=== PATIENT | female | born 1940 | race Caucasian/White ===

== ENCOUNTER 2017-07-31 16:59 | Inpatient (IN) | payer MEDICARE, MEDICAID ==
[2017-07-31] VITALS (11 sets, daily range): BP systolic 101–145; BP diastolic 58–91
[~2017-07-31] VITALS: Ht 172.7 cm; Wt 99.8 kg
[~2017-07-31 16:59] MED LIST: ACHD5005 PO; AMLO1CAP PO; AMLO1CAP31; AMLO1CAP5 PO; AMLO1CAP8 PO; ASPI1TAB PO; CALC-665 PO; CHLO-159 PO; CIPR500T4 PO; CRAN1CAP5 PO; EZET10TA5; HCT25T PO; HYDR25TA4 PO; INSASP10V; INSASP10V SQ; INSHRV; INSU100V16 SQ; INSU100V5 SQ; INSU100V6 SQ; INSU100V8 SQ; KETO10TA77 PO; LEVO500T69 PO; MECL-124 PO; MULT-1021 PO; NAPR220T76 PO; NITR-65 PO; PRAV40TA PO; PRAV40TA2 PO; SCOP1PAT TD; SIMV40TA2; SIMV5TAB6; SMV20T
[2017-07-31] MEDS ORDERED: ASPIRIN 81 MG CHEW (CHILDREN'S ASA) PO ONE (17:00)
[2017-07-31 17:08] LABS: BASOPHILS % (AUTO) 0 % (0-10); EOSINOPHILS % (AUTO) 0 % (0-10); HEMATOCRIT 35 % (35-52); HEMOGLOBIN 11.4 G/DL (11.5-16.0); LYMPHOCYTES # (AUTO) 1.7 X 10^3 (1.0-4.0); LYMPHOCYTES % (AUTO) 10 % (12-44); MEAN CORPUSCULAR HEMOGLOBIN 30 PG (25-34); MEAN CORPUSCULAR HGB CONC 32 G/DL (32-36); MEAN CORPUSCULAR VOLUME 91 FL (80-99); MEAN PLATELET VOLUME 11.5 FL (7.4-10.4); MONOCYTES # (AUTO) 0.2 X 10^3 (0.0-1.0); MONOCYTES % (AUTO) 1 % (0-12); NEUTROPHILS # (AUTO) 15.1 X 10^3 (1.8-7.8); NEUTROPHILS % (AUTO) 89 % (42-75); PLATELET COUNT 321 10^3/uL (130-400); RED BLOOD COUNT 3.87 10^6/uL (4.35-5.85); RED CELL DISTRIBUTION WIDTH 14.9 % (10.0-14.5)
[2017-07-31] MEDS ORDERED: RT-ALBUTEROL/IPRATROPIUM 3 ML (DUONEB) VIAL ONE ×2 (17:11→20:54)
[2017-07-31] MEDS ORDERED: RT-ALBUTEROL SULF 2.5 MG/3 ML PRE-MIX VIAL INH STA ×2 (17:11→17:26)
--- NOTE | 2017-07-31 17:11 | ED Chest Pain ---
General Stated Complaint: CP Source: patient, EMS, retirement records, old records Exam Limitations: clinical condition History of Present Illness Date Seen by Provider: Jul 31, 2017 Time Seen by Provider: 16:53 Initial Comments Patient presents to the ER by EMS with a chief complaint that she is having chest pain for the past 2 days. She says the pain is 10 out of 10. EMS on route brought her put an IV in her arm and gave her 50 mg fentanyl which the patient says was starting to help. She is also complaining of shortness of breath and was 82% on 2 L by nasal cannula when they arrived. They said the patient was mouth breathing so they switched her over to a nonrebreather and got her sats up into the 96 range. The patient says this pain is not the same pain she was experiencing when she had her heart attack a couple months ago. She says that the pain has progressively gotten worse and that's why she asked for an ambulance today. She comes from via [facility]. She's having some sweats but no nausea or vomiting. Allergies and Home Medications Allergies Coded Allergies: Zulema Known Allergies (Unverified Allergy, Unknown, 08/29/05) Home Medications Amlodipine Besylate/Benazepril 1 Each Capsule, 1 CAP PO DAILY, (Reported) Hydrochlorothiazide 25 Mg Tablet, 25 MG PO HS, (Reported) Insulin Aspart 100 Unit/1 Ml Susp, 20 UNITS SQ TIDWM, (Reported) Insulin Determir 1,000 Units/10 Ml Soln, 55 UNITS SQ HS, (Reported) Pravastatin Sodium 40 Mg Tablet, 40 MG PO HS, (Reported) Patient Home Medication List Home Medication List Reviewed: Yes Review of Systems Constitutional: chills, diaphoresis, malaise EENTM: No Blurred Vision, No Double Vision Respiratory: Denies Cough; Shortness of Air, SOA With Exertion, Wheezing Cardiovascular: See HPI, Chest Pain; Denies Palpitations, Denies Syncope Gastrointestinal: Denies Constipated, Denies Diarrhea Genitourinary: Denies Burning, Denies Discharge Musculoskeletal: No back pain, No joint pain Skin: No pruritus, No rash Psychiatric/Neurological: Denies Headache, Denies Numbness, Denies Paresthesia Past Abcxugz-Yjhiph-Pleeqy Hx Patient Social History Alcohol Use: Denies Use Recreational Drug Use: No Smoking Status: Never a Smoker Recent Hopitalizations: No Seasonal Allergies Seasonal Allergies: Yes (take ChlorTabs) Past Medical History Surgeries: Yes (MELANOMA REMOVAL FROM RIGHT LEG; BILATERAL CATARACTS) Eye Surgery, Gallbladder Respiratory: No Cardiac: Yes Chronic Edema/Swelling, High Cholesterol, Hypertension Neurological: No Reproductive Disorders: No Female Reproductive Disorders: Denies COMMERCIAL REAL ESTATE APPRAISER History: Menopausal Sexually Transmitted Disease: No HIV/AIDS: No Genitourinary: Yes (RENAL INSUFFICIENCY; UROSEPSIS) UTI-Chronic Gastrointestinal: Yes Gall Bladder Disease Musculoskeletal: Yes (RIGHT ANKLE FRACTURE--NO SURGERY) Arthritis, Fractures Endocrine: Yes Diabetes, Insulin dep HEENT: Yes Cataract, Macular Degeneration Hearing Impairment: Denies Cancer: Yes Melanoma Did You Recieve Any Treatments: Yes What Type of Treatment Did You: Surgical Intervention Psychosocial: No Integumentary: No Blood Disorders: Yes (ANEMIA) Family Medical History No Pertinent Family Hx Physical Exam Vital Signs Vital Signs - First Documented 07/31/17 17:00 Temp 95.3 Pulse 104 Resp 18 B/P (MAP) 156/96 (116) Pulse Ox 94 O2 Delivery OxyMask O2 Flow Rate 10.00 Capillary Refill : General Appearance: Anxious, Moderate Distress HEENT: PERRL/EOMI, TMs Normal, Normal ENT Inspection, Pharynx Normal Neck: Normal Inspection, Supple Respiratory: Accessory Muscle Use (mild), Decreased Breath Sounds, Expiration, Wheezing Cardiovascular: Regular Rate, Rhythm, No Murmur, Normal Peripheral Pulses Gastrointestinal: Normal Bowel Sounds, Non Tender, Soft Extremity: Normal Capillary Refill, Normal Inspection Neurologic/Psychiatric: Alert, Oriented x3 Skin: Normal Color, Warm/Dry, Damp, Diaphoresis Progress/Results/Core Measures Results/Orders Lab Results Laboratory Tests Test 07/31/17 17:01 07/31/17 17:15 Range/Units White Blood Count 17.0 H 4.3-11.0 10^3/uL Red Blood Count 3.87 L 4.35-5.85 10^6/uL Hemoglobin 11.4 L 11.5-16.0 G/DL Hematocrit 35 35-52 % Mean Corpuscular Volume 91 80-99 FL Mean Corpuscular Hemoglobin 30 25-34 PG Mean Corpuscular Hemoglobin Concent 32 32-36 G/DL Red Cell Distribution Width 14.9 H 10.0-14.5 % Platelet Count 321 130-400 10^3/uL Mean Platelet Volume 11.5 H 7.4-10.4 FL Neutrophils (%) (Auto) 89 H 42-75 % Lymphocytes (%) (Auto) 10 L 12-44 % Monocytes (%) (Auto) 1 0-12 % Eosinophils (%) (Auto) 0 0-10 % Basophils (%) (Auto) 0 0-10 % Neutrophils # (Auto) 15.1 H 1.8-7.8 X 10^3 Lymphocytes # (Auto) 1.7 1.0-4.0 X 10^3 Monocytes # (Auto) 0.2 0.0-1.0 X 10^3 Eosinophils # (Auto) 0.0 0.0-0.3 10^3/uL Basophils # (Auto) 0.0 0.0-0.1 10^3/uL Neutrophils % (Manual) 90 % Lymphocytes % (Manual) 7 % Monocytes % (Manual) 3 % Blood Morphology Comment NORMAL Prothrombin Time 14.5 12.2-14.7 SEC INR Comment 1.1 0.8-1.4 Activated Partial Thromboplast Time 27 24-35 SEC D-Dimer 1.24 H 0.00-0.49 UG/ML Sodium Level 140 135-145 MMOL/L Potassium Level 5.0 3.6-5.0 MMOL/L Chloride Level 105 98-107 MMOL/L Carbon Dioxide Level 23 21-32 MMOL/L Anion Gap 12 5-14 MMOL/L Blood Urea Nitrogen 47 H 7-18 MG/DL Creatinine 1.36 H 0.60-1.30 MG/DL Estimat Glomerular Filtration Rate 38 BUN/Creatinine Ratio 35 Glucose Level 300 H 70-105 MG/DL Calcium Level 10.0 8.5-10.1 MG/DL Magnesium Level 2.4 1.8-2.4 MG/DL Total Bilirubin 0.4 0.1-1.0 MG/DL Aspartate Amino Transf (AST/SGOT) 48 H 5-34 U/L Alanine Aminotransferase (ALT/SGPT) 67 H 0-55 U/L Alkaline Phosphatase 146 H 40-136 U/L Myoglobin 86.6 10.0-92.0 NG/ML Troponin I < 0.30 <0.30 NG/ML B-Type Natriuretic Peptide 1048.3 H <100.0 PG/ML Total Protein 7.7 6.4-8.2 GM/DL Albumin 4.0 3.2-4.5 GM/DL Lipase 14 8-78 U/L Blood Gas Puncture Site LT RAD Blood Gas Patient Temperature 95.3 Arterial Blood pH 7.23 *L 7.37-7.43 Arterial Blood Partial Pressure CO2 70 H 35-45 MMHG Arterial Blood Partial Pressure O2 77 L 79-93 MMHG Arterial Blood HCO3 29 H 23-27 MMOL/L Arterial Blood Total CO2 31.2 H 21.0-31.0 MMOL/L Arterial Blood Oxygen Saturation 92 L 94-100 % Arterial Blood Base Excess 1.5 -2.5-2.5 MMOL/L Nicho Test YES-POS Blood Gas Ventilator Setting NO Blood Gas Inspired Oxygen 10L My Orders Orders - LATOYA,ANA J Cbc With Automated Diff (07/31/17 17:00) Magnesium (07/31/17 17:00) Chest 1 View, Ap/Pa Only (07/31/17 17:00) Ekg Tracing (07/31/17 17:00) Cardiac Profile 1 (07/31/17 17:00) Comprehensive Metabolic Panel (07/31/17 17:00) Myoglobin Serum (07/31/17 17:00) Protime With Inr (07/31/17 17:00) Partial Thromboplastin Time (07/31/17 17:00) O2 (07/31/17 17:00) Monitor-Rhythm Ecg Trace Only (07/31/17 17:00) Saline Lock/Iv-Start (07/31/17 17:00) Lipase (07/31/17 17:00) BNP (07/31/17 17:00) Fibrin Degradation Products (07/31/17 17:00) Aspirin Chewable Tablet (Baby Aspirin Ch (07/31/17 17:00) Nitroglycerin 0.4 Mg Btl 25's (Nitrostat (07/31/17 17:00) Lipid Panel (08/01/17 06:00) Manual Differential (07/31/17 17:01) Albuterol Pre-Mix Nebs (Rt) (Proventil (07/31/17 17:11) Albuterol/Ipra Inhalation Soln (Duoneb I (07/31/17 17:15) Svn Small Volume Nebulizer (07/31/17 17:11) Albuterol/Ipra Inhalation Soln (Duoneb I (07/31/17 17:11) Arterial Blood Gas (07/31/17 17:16) Morphine Injection (Morphine Injection (07/31/17 17:30) Morphine Injection (Morphine Injection (07/31/17 17:22) Albuterol Pre-Mix Nebs (Rt) (Proventil (07/31/17 17:26) Saline Lock/Iv-Start (07/31/17 17:27) Ns Iv 1000 Ml (Sodium Chloride 0.9%) (07/31/17 17:27) Ct Angio Chest W (07/31/17 17:36) Bipap (Bilevel) Set Up (07/31/17 17:46) Iohexol Injection (Omnipaque 350 Mg/Ml 1 (07/31/17 18:00) Ns (Ivpb) (Sodium Chloride 0.9% Ivpb Bag (07/31/17 18:00) Furosemide Injection (Lasix Injection) (07/31/17 19:00) Medications Given in ED Current Medications Medications Dose Ordered Sig/Rommel Route Start Time Stop Time Status Last Admin Dose Admin Albuterol/ Ipratropium 3 ml ONCE ONCE INH 07/31/17 17:15 07/31/17 17:16 DC 07/31/17 17:43 3 ML Aspirin 162 mg ONCE ONCE PO 07/31/17 17:00 07/31/17 17:02 DC 07/31/17 17:15 162 MG Iohexol 150 ml ONCE ONCE IV 07/31/17 18:00 07/31/17 18:01 UNV 07/31/17 18:08 125 ML Morphine Sulfate 4 mg ONCE ONCE IVP 07/31/17 17:30 07/31/17 17:31 DC 07/31/17 17:25 4 MG Nitroglycerin 0.4 mg UD PRN SL 07/31/17 17:00 07/31/17 17:17 0.4 MG Sodium Chloride 100 ml ONCE ONCE IV 07/31/17 18:00 07/31/17 18:01 UNV 07/31/17 18:08 100 ML Vital Signs/I&O 07/31/1718 07/31/17 17:00 17:00 17:44 Temp 95.3 Pulse 104 98 Resp 18 29 B/P (MAP) 156/96 (116) Pulse Ox 94 93 97 O2 Delivery OxyMask O2 Flow Rate 10.00 Progress Progress Note #1: Time: 17:23 Progress Note Patient describes her chest pain as being different from when she had her cardiac disease however her cardiac catheterization from April 2017 demonstrates that she was sent to [place], [place] for potential CABG but they put stents and instead. The patient is on Pradaxa per retirement records. She says the pain was marginally improved with 2 nitroglycerin down to 8 out of 10 but she still having quite a bit of pain and anxiety sober any give her 4 mg of morphine in addition. Her blood pressure still good 140. The patient's breath sounds are still very tight but moving a little bit more air after the initial albuterol DuoNeb. We are going to give her an hour-long nebulizer but she's not able to tolerate the 6 L/m nebulizer alone so we'll put her on CPAP to help with her increased work of breathing. Progress Note #2: Time: 18:35 Progress Note With the patient's chest pain, shortness of breath, hypoxia is very concerning for pneumonia, heart failure, pulmonary embolism, coronary artery disease. She says the pain is not the same as her last heart attack so the other seemed to be more likely. Her EKG is unremarkable. Her d-dimer was elevated so despite her having chronic kidney disease we have ordered a CT angiogram and will chaser with a liter fluids. Her BNP came back elevated over thousand and her chest x-ray looks like fluid overload so we will now jose her with some Lasix. Initial ECG Impression Date: Jul 31, 2017 Initial ECG Impression Time: 17:03 Initial ECG Rate: 109 Initial ECG Rhythm: S.Tach Initial ECG Intervals: Normal Initial ECG Impression: Normal, Nonspecific Changes Initial ECG Comparisson: Changed Comment The T-wave elevation in the anterior leads is no longer seen from April 2017. There is no ST segment elevation or depression currently. She does have low voltage read with some minor artifact. Diagnostic Imaging Diagonstic Imaging: Xray Plain Films/CT/US/NM/MRI: chest Comments VIA [facility], [facility]. [place], [place] NAME: LALO CULLEN I [facility] REC#: [id number] PT STATUS: REG ER : 1940 PHYSICIAN: ANA KLEIN MD ADMIT DATE: 07/31/17/ER Draft Date of Exam:07/31/17 CHEST 1 VIEW, AP/PA ONLY INDICATION: Chest pain. Shortness of breath. COMPARISON: 04/22/2017. FINDINGS: There has been increase in cardiac size. There has been development of pulmonary edema with bilateral perihilar infiltrates as well as bilateral lower lobe alveolar infiltrates. There are small bilateral pleural effusions. IMPRESSION: 1. Findings are consistent with development of congestive failure since previous exam. Cannot exclude superimposed pneumonia in the lower lobes bilaterally. Dictated on workstation # [id number] Dict: 07/31/17 1816 Trans: 07/31/17 1824 KB [id number] Interpreted by: MADI JUAREZ MD Electronically signed by: Reviewed: Reviewed by Me Diagonstic Imaging: CT (angio) Plain Films/CT/US/NM/MRI: chest Comments VIA [place], [place] NAME: LALO CULLEN I [facility] REC#: [id number] PT STATUS: REG ER : 1940 PHYSICIAN: ANA KLEIN MD ADMIT DATE: 07/31/17/ER Draft Date of Exam:07/31/17 CT ANGIO CHEST W PROCEDURE: CT angiography of the chest with contrast. TECHNIQUE: Multiple contiguous axial images were obtained through the chest after uneventful bolus administration of intravenous contrast. Reconstructed CTA MIP acquisitions were also performed. INDICATION: Chest pain with shortness of breath. History of previous DVT and PE. CT angiography was performed due to acute shortness of breath and high risk and in spite of mildly decreased GFR function. This was discussed with the physician. FINDINGS: There are large bilateral pleural effusions. There is bilateral lower lobe atelectasis. Findings are consistent with diffuse pulmonary edema with diffuse interstitial infiltrate. There is good opacification of aorta and pulmonary arteries. There is no evidence of aortic aneurysm or dissection. Pulmonary arteries are well opacified. There are no filling defects to indicate pulmonary emboli. There is cardiomegaly with dilated left ventricle. No mediastinal or hilar adenopathy of pathologic size. IMPRESSION: 1. Findings are consistent with congestive failure with large bilateral pleural effusions with bibasilar atelectasis and diffuse interstitial infiltrates as well as cardiomegaly. 2. No findings to suggest pulmonary emboli. Dictated on workstation # [id number] Dict: 07/31/17 1821 Trans: 07/31/17 1829 KB [id number] Interpreted by: MADI JUAREZ MD Electronically signed by: Reviewed: Reviewed by Me Departure Communication (Admissions) Time/Spoke to Admitting Phy: 18:43 Dr Tom; discussed case lab imaging findings and use a CT angiogram despite chronic kidney disease. Discussed possibility of pneumonia that will cover her with cefepime. She agrees with ICU placement and she'll see the patient in the morning. Impression Primary Impression: Acute respiratory distress Additional Impressions: Hypoxemia Hypercarbia Acute decompensated heart failure Pneumonia Qualified Codes: J18.9 - Pneumonia, unspecified organism Sepsis Qualified Codes: A41.9 - Sepsis, unspecified organism Disposition: ADMITTED INPATIENT Condition: Critical Admissions Decision to Admit Reason: Admit from ER (General) Decision to Admit/Date: Jul 31, 2017 Time/Decision to Admit Time: 18:39 Departure-Patient Inst. Referrals: MERLIN OLMOS MD (PCP/Family) Primary Care Physician Copy Copies To 1: KHLOE JAIN TITUS J Jul 31, 2017 17:11
[2017-07-31] MEDS: NITROGLYCERIN 0.4 MG SL TABS BTL 25'S SL PRN ×2 (17:12→17:17)
[2017-07-31] MEDS ORDERED: RT-ALBUTEROL/IPRATROPIUM 3 ML (DUONEB) VIAL INH ONE (17:15)
[2017-07-31 17:20] LABS: INR 1.1 (0.8-1.4); PROTHROMBIN TIME PATIENT 14.5 SEC (12.2-14.7)
[2017-07-31] MEDS ORDERED: morphine INJ 10 MG/ML 1ML (SYR OR VIAL) ONE (17:22)
[2017-07-31 17:24] LABS: ABG BASE EXCESS 1.5 MMOL/L (-2.5-2.5); ABG OXYGEN SATURATION 92 % (94-100); ABG PCO2 70 MMHG (35-45); ABG PO2 77 MMHG (79-93); ABG TCO2 31.2 MMOL/L (21.0-31.0)
[2017-07-31 17:25] LABS: ABG PH 7.23 (7.37-7.43)
[2017-07-31 17:26] LABS: ALLENS TEST YES-POS; INSPIRED O2 10L; PATIENT TEMP 95.3; VENTILATOR NO
[2017-07-31 17:27] LABS: ALANINE AMINOTRANSFERASE 67 U/L (0-55); ALKALINE PHOSPHATASE 146 U/L (40-136); BILIRUBIN,TOTAL 0.4 MG/DL (0.1-1.0); BUN/CREATININE RATIO 35; CARBON DIOXIDE 23 MMOL/L (21-32); CHLORIDE 105 MMOL/L (98-107); CREATININE SERUM 1.36 MG/DL (0.60-1.30); GFR ESTIMATED 38; GLUCOSE 300 MG/DL (70-105); LIPASE 14 U/L (8-78); MAGNESIUM 2.4 MG/DL (1.8-2.4); SODIUM 140 MMOL/L (135-145); TOTAL PROTEIN 7.7 GM/DL (6.4-8.2)
[2017-07-31] MEDS ORDERED: NS IV 1000 ML 1,000 ML IV SCH (17:27)
[2017-07-31] MEDS ORDERED: morphine INJ 10 MG/ML 1ML (SYR OR VIAL) IVP ONE (17:30)
[2017-07-31 17:33] LABS: MYOGLOBIN SERUM 86.6 NG/ML (10.0-92.0)
[2017-07-31 17:41] LABS: LYMPHOCYTES % (MANUAL) 7 %; MONOCYTES % (MANUAL) 3 %; NEUTROPHILS % (MANUAL) 90 %; RBC MORPH NORMAL
[2017-07-31] MEDS ORDERED: IOHEXOL 350 MG/ML 150 ML (OMNIPAQUE 350) VIAL IV ONE (18:00)
[2017-07-31] MEDS ORDERED: NS 100 ML (IVPB) BAG IV ONE (18:00)
--- NOTE | 2017-07-31 18:24 | Diagnostic Imaging Report ---
INDICATION: Chest pain. Shortness of breath. COMPARISON: 04/22/2017. FINDINGS: There has been increase in cardiac size. There has been development of pulmonary edema with bilateral perihilar infiltrates as well as bilateral lower lobe alveolar infiltrates. There are small bilateral pleural effusions. IMPRESSION: 1. Findings are consistent with development of congestive failure since previous exam. Cannot exclude superimposed pneumonia in the lower lobes bilaterally. Dictated by: Dictated on workstation # [id number]
--- NOTE | 2017-07-31 18:29 | Diagnostic Imaging Report ---
PROCEDURE: CT angiography of the chest with contrast. TECHNIQUE: Multiple contiguous axial images were obtained through the chest after uneventful bolus administration of intravenous contrast. Reconstructed CTA MIP acquisitions were also performed. INDICATION: Chest pain with shortness of breath. History of previous DVT and PE. CT angiography was performed due to acute shortness of breath and high risk and in spite of mildly decreased GFR function. This was discussed with the physician. FINDINGS: There are large bilateral pleural effusions. There is bilateral lower lobe atelectasis. Findings are consistent with diffuse pulmonary edema with diffuse interstitial infiltrate. There is good opacification of aorta and pulmonary arteries. There is no evidence of aortic aneurysm or dissection. Pulmonary arteries are well opacified. There are no filling defects to indicate pulmonary emboli. There is cardiomegaly with dilated left ventricle. No mediastinal or hilar adenopathy of pathologic size. IMPRESSION: 1. Findings are consistent with congestive failure with large bilateral pleural effusions with bibasilar atelectasis and diffuse interstitial infiltrates as well as cardiomegaly. 2. No findings to suggest pulmonary emboli. Dictated by: Dictated on workstation # [id number]
[2017-07-31] MEDS ORDERED: FUROSEMIDE 40 MG/4 ML INJ (LASIX) IVP ONE (19:00)
--- OUTSIDE RECORDS SUMMARY | 2017-07-31 19:46 | XMS REPORT ---
Author Author MERLIN OLMOS Organization [facility] Address [address] [place] [address] Care Team Providers Care Fish Roe Technician Name Role Phone MERLIN OLMOS Unavailable PROBLEMS Type Condition ICD9-CM Code [id number] Code Onset Dates Condition Status SNOMED Code Problem Type 2 diabetes mellitus without complications E11.9 Active 459103253 Problem Chronic kidney disease, unspecified N18.9 Active 070192631 Problem Coronary artery disease involving 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 Active [id number] Problem Mixed hyperlipidemia E78.2 Active 011529559 Problem Arthropathy, unspecified M12.9 Active 666818836 Problem Hyperlipidemia, unspecified hyperlipidemia type E78.5 Active 18292383 Problem Essential hypertension I10 Active [id number] ALLERGIES No Information ENCOUNTERS Encounter Location Date Diagnosis [place] [id number] [place] [address] 24210- 7761 May, [place] [id number] [place] [address] 51537- 1428 May, [facility] [address] [place] [id number] May, Rib pain on left side R07.81 and Type 2 diabetes mellitus without complications E11.9 [facility] [address] [place] [id number] Apr, Coronary artery disease involving 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 ; Type 2 diabetes mellitus without complications E11.9 ; Chronic kidney disease, unspecified N18.9 ; Essential hypertension I10 and Hyperlipidemia, unspecified hyperlipidemia type E78.5 [place] [id number] [place] [address] 67049- 7069 Apr, [place] [id number] [place] [address] 72862- 0727 Apr, [facility] [id number] [place] [address] 41587- 4763 Mar, Type 2 diabetes mellitus without complications E11.9 ; Essential hypertension I10 and Arthropathy, unspecified M12.9 [facility] [id number] [place] [address] 85758- 8641 Mar, [facility] [address] [address]472- 1556 Mar, [facility] [id number] [place] [address] 08912- 4189 Dec, Cough R05 and Nasal congestion R09.81 [facility] [id number] [place] [address] 28000 -9004 Nov, Bronchitis J40 and Body aches R52 [facility] [id number] [place] [address] 79727- 0617 Sep, [facility] [id number] [place] [address] 43713- 1240 Sep, [facility] [id number] [place] [address] 98583- 8827 Sep, [facility] [id number] [place] [address] 04270- 1203 Aug, Arthropathy, unspecified M12.9 [facility] [id number] [place] [address] 67102- 5993 Jul, Arthropathy, unspecified M12.9 [facility] [id number] [place] [address] 34126- 0796 June, Type 2 diabetes mellitus without complications E11.9 ; Urinary tract infection without hematuria, site unspecified N39.0 and Arthropathy, unspecified M12.9 [facility] [address] [place] [address] 07507- 4409 May, Vertigo R42 [facility] [id number] [place] [address] 66245- 2763 May, [facility] [address] 95940- 1608 May, Arthropathy, unspecified M12.9 [facility] [id number] [place] [address] 84687- 6433 Apr, Arthropathy, unspecified M12.9 [facility] [address] 54981- 4231 Mar, Arthropathy, unspecified M12.9 [facility] [address] 05501- 8601 Jan, Arthropathy, unspecified M12.9 [facility] [id number] [place] [address] 06933- 8313 Jan, Dysuria R30.0 and Encounter for immunization Z23 [facility] [id number] [place] [address] 41676- 0034 Jan, Arthropathy, unspecified M12.9 [facility] [id number] [place] [address] 43976- 6425 Dec, Arthropathy, unspecified M12.9 and Mixed hyperlipidemia E78.2 [facility] [id number] [place] [address] 18749- 4687 Dec, [facility] [id number] [place] [address] 31197- 7526 Nov, [facility] [id number] [place] [address] 24540- 0077 Oct, [facility] [id number] [place] [address] 41957- 6924 Sep, [facility] [id number] [place] [address] 59625- 9536 Aug, [facility] [id number] [place] [address] 92199- 4517 Aug, Type 2 diabetes mellitus without complications E11.9 [facility] [address] [place] [address] 43088- 5933 Jul, Arthropathy, unspecified M12.9 [facility] [address] [address] 3[address] Jul, [facility] [id number] [place] [address] 20101- 9216 June, Arthropathy, unspecified M12.9 [facility] [address] [place] [address] 94732- 3523 May, Arthropathy, unspecified M12.9 [facility] [address] [place] [address] 26762- 5337 Apr, Arthropathy, unspecified M12.9 [facility] [id number] [place] [address] 18711- 7105 Mar, DM w/o complication type II 250.00 and UTI (urinary tract infection) N39.0 [facility] [address] [place] [address] 18190- 5681 Jan, [facility] [address] [address] 3419 Dec, [facility] [address] [address]- 4953 Nov, [facility] [address] [address]- 9379 Nov, [facility] [address] [place] [address] 47079- 3960 Nov, [facility] [address] [address]- 6210 Nov, Dysuria R30.0 [facility] [address] [place] [address] 29608- 2109 Nov, Dysuria R30.0 [facility] [id number] [address] 1994 Oct, DM w/o complication type II 250.00 ; Arthritis 716.90 ; Herpes zoster 053.9 and Flu vaccine need V04.81 [facility] [address] [address] Sep, [facility] [id number] [place] [address] 07999- 6734 Sep, [facility] [address] [address]- 7294 Aug, [facility] [id number] [place] [address] 61247- 1973 Aug, Chronic kidney disease 585.9 [facility] [address] [place] [address] 96440- 2070 Aug, [facility] [address] [address]- 6196 Jul, [facility] [id number] [place] [address] 29859- 8996 Jul, Urinary tract infection, site not specified 599.[address] [facility] [address] [address]- 6749 Jul, [facility] [address] [place] [address] 92648- 7008 Jul, [facility] [id number] [address]- 5739 Jul, Chronic kidney disease 585.9 [facility] [address] [place] [address] 02261- 6881 Jul, Muscle strain of left upper arm 840.9 [facility] [address] [address]- 7293 June, [facility] [address] [id number] [place] [address]- 3535 June, [facility] [place] [facility] [address] [id number] [place] [address]- 4774 June, [facility] [place] [facility] [address] [id number] [place] [address]- 0328 May, [facility] [place] [facility] [address] [id number] [place] [address]- 3097 May, [facility] [place] [facility] [address] [id number] [place] [address]- 7242 Apr, [facility] [place] [facility] [address] [id number] [place] [address]- 2119 24 Apr, 2014 [facility] [place] [facility] [address] [id number] [place] [address]- 2713 Apr, [facility] [place] [facility] [address] [id number] [place] [address]- 6806 Apr, [facility] [place] [facility] [address] [id number] [place] [address]- 5885 Apr, [facility] [place] [facility] [address] [id number] [place] [address]- 2977 Apr, [facility] [place] [facility] [address] [id number] [place] [address]- 3045 Apr, [facility] [place] [facility] [address] [id number] [place] [address]- 7129 Jan, [facility] [place] [facility] [address] [id number] [place] [address]- 5037 Jan, [facility] [place] [facility] [address] [id number] [place] [address]- 2251 Jan, [facility] [place] [facility] [address] [id number] [place] [address]- 7827 Jan, [facility] [place] [facility] [address] [id number] [place] [address]- 1238 Oct, [facility] [place] [facility] [address] [id number] [place] [address]- 1987 Oct, [facility] [place] [facility] [address] [id number] [place] [address]- 6937 Oct, [facility] [place] [facility] [address] [id number] [place] [address]- 6661 Oct, [facility] [place] [facility] [address] [id number] [place] [address]- 4577 Oct, [facility] [place] [facility] [address] [id number] [place] [address]- 6379 Sep, [facility] [place] [facility] [address] [id number] [place] [address]- 0446 Sep, [facility] [place] [facility] [address] [id number] [place] [address]- 4282 Sep, [facility] [place] [facility] [address] [id number] [place] [address]- 5575 Sep, [facility] [place] [facility] [address] [id number] [place] [address]- 5746 Sep, [facility] [place] [facility] [address] [id number] [place] [address]- 6597 Sep, [facility] [place] [facility] [address] [id number] [place] [address]- 1373 Aug, [facility] [place] [facility] [address] [id number] [place] [address]- 1800 Aug, [facility] [place] [facility] [address] [id number] [place] [address]- 0376 Jul, [facility] [place] [facility] [address] [id number] [place] [address]- 1650 Jul, [facility] [place] [facility] [address] [id number] [place] [address]- 7827 June, [facility] [place] [facility] [address] [id number] [place] [address]- 2546 June, [facility] [address] [id number] [place] [address]- 0956 June, [facility] [address] [id number] [place] [address]- 2546 June, [facility] [address] [id number] [place] [address]- 6606 May, [facility] [address] [id number] [place] [address]- 2546 May, [facility] [address] [id number] [place] [address]- 7596 Apr, [facility] [address] [id number] [place] [address]- 1626 Mar, [facility] [address] [id number] [place] [address]- 4191 Mar, [facility] [address] [id number] [place] [address]- 0194 Jan, [facility] [address] [id number] [place] [address]- 5352 Jan, [facility] [address] [id number] [place] [address]- 7356 Nov, [facility] [place] [facility] [address] [id number] [place] [address]- 4676 Nov, [facility] [address] [id number] [place] [address]- 2544 Sep, [facility] [place] [facility] [address] [id number] [place] [address]- 2546 Aug, [facility] [place] [facility] [address] [id number] [place] [address]- 2546 Aug, [facility] [address] [id number] [place] [address]- 9374 Aug, [facility] [address] [id number] [place] [address]- 2011 June, [facility] [address] [id number] [place] [address]- 6671 June, [facility] [address] [id number] [place] [address]- 0834 June, [facility] [address] [id number] [place] [address]- 7034 June, [facility] [address] [id number] [place] [address]- 5329 June, [facility] [address] [id number] [place] [address]- 5776 June, [facility] [address] [id number] [place] [address]- 6507 May, [facility] [address] [id number] [place] [address]- 7903 Apr, [facility] [address] [id number] [place] [address]- 3875 Apr, [facility] [address] [id number] [place] [address]- 7721 Mar, [facility] [address] [id number] [place] [address]- 7084 Mar, [facility] [address] [id number] [place] [address]- 4526 Mar, [facility] [place] [facility] [address] [id number] [place] [address]- 7265 Mar, [facility] [address] [id number] [place] [address]- 0916 Dec, [facility] [place] [facility] [address] [id number] [place] [address]- 2106 Dec, [facility] [address] [id number] [address]46 [address], [address] [facility] [address] [address] 2546 June, [facility] [address] [address]- 2546 May, [facility] [address] [address]- 2546 Apr, [facility] [address] [address]- 2546 27 Apr, 2011 [facility] [address] [address]- 2546 16 Apr, 2011 [facility] [address] [address]- 2546 [address], [address] [facility] [address] [address] 2546 Apr, [facility] [address] [address]- 8306 Jan, [facility] [address] [address]- 5863 Nov, [facility] [address] [address]- 2546 Jan, [facility] [id number] [address] 2546 Nov, IMMUNIZATIONS No Known Immunizations SOCIAL HISTORY Never Assessed REASON FOR VISIT LVM PLAN OF CARE VITAL SIGNS MEDICATIONS Unknown Medications RESULTS No Results PROCEDURES No Known procedures INSTRUCTIONS MEDICATIONS ADMINISTERED No Known Medications MEDICAL (GENERAL) HISTORY Type Description Date Medical History Type 2 Diabetes Medical History Hypertension Medical History Hyperlipidemia Medical History [place] 04/2017 Surgical History Malignant melanoma removed 1987 Surgical History Gallbladder removed 1999 Surgical History Several stents at [place]. 04/2017 Surgical History cataract surgery Hospitalization History Hyperkalemia 2005 Hospitalization History High Potassium 2009 Hospitalization History ecoli, blood sugar, UTI, at june 2016
--- OUTSIDE RECORDS SUMMARY | 2017-07-31 19:47 | XMS REPORT ---
Author Author KVNG ERICKSON Organization [facility] Address [address] [place] [address] Care Team Providers Care Human Relations Teacher Name Role Phone KVNG ERICKSON Unavailable PROBLEMS Type Condition ICD9-CM Code FBN51-LA Code Onset Dates Condition Status SNOMED Code Problem Type 2 diabetes mellitus without complications E11.9 Active 922975470 Problem Chronic kidney disease, unspecified N18.9 Active 948289103 Problem Coronary artery disease involving [place] coronary artery of [place] heart without angina pectoris I25.10 Active 2596068376986 Problem Mixed hyperlipidemia E78.2 Active 447863115 Problem Arthropathy, unspecified M12.9 Active 513175582 Problem Hyperlipidemia, unspecified hyperlipidemia type E78.5 Active 29073169 Problem Essential hypertension I10 Active 21595905 ALLERGIES No Known Allergies ENCOUNTERS Encounter Location Date Diagnosis [facility] [id number] [place] [address] 96673- 5191 Jul, [facility] [id number] [place] [address] 14823- 9421 June, [facility] [id number] [place] [address] 02875- 2048 June, [facility] [id number] [place] [address] 46722- 5028 May, [facility] [id number] [place] [address] 36416- 1656 May, [facility] [address] 34956- 9196 May, [facility] [id number] [place] [address] 00711- 0484 May, [address] [place] [id number] May, Rib pain on left side R07.81 and Type 2 diabetes mellitus without complications E11.9 [facility] [address] [place] [id number] Apr, Coronary artery disease involving [place] coronary artery of [place] heart without angina pectoris I25.10 ; Type 2 diabetes mellitus without complications E11.9 ; Chronic kidney disease, unspecified N18.9 ; Essential hypertension I10 and Hyperlipidemia, unspecified hyperlipidemia type E78.5 [facility] [address] 10129- 1214 Apr, [facility] [address] 16264- 0000 Apr, [facility] [address] 90582- 7887 Mar, Type 2 diabetes mellitus without complications E11.9 ; Essential hypertension I10 and Arthropathy, unspecified M12.9 [facility] [address] 41323- 3627 Mar, [facility] [address] 81304- 0136 Mar, [facility] [address] 12865- 1884 Dec, Cough R05 and Nasal congestion R09.81 [facility] [id number] [place] [address] 41418 -8465 Nov, Bronchitis J40 and Body aches R52 [facility] [id number] [place] [address] 88662- 2109 Sep, [facility] [address] 69869- 1480 Sep, [facility] [address] 17847- 0812 Sep, [facility] [address] 74523- 3449 Aug, Arthropathy, unspecified M12.9 [facility] [id number] [place] [address] 22918- 8720 Jul, Arthropathy, unspecified M12.9 [facility] [id number] [place] [address] 24946- 1535 June, Type 2 diabetes mellitus without complications E11.9 ; Urinary tract infection without hematuria, site unspecified N39.0 and Arthropathy, unspecified M12.9 [place] [id number] [place] [address] 35858- 4578 May, Vertigo R42 [address] [address] 10969- 7815 May, [place] [address] 00674- 1009 May, Arthropathy, unspecified M12.9 [place] [facility] [id number] [place] [address] 85624- 9985 Apr, Arthropathy, unspecified M12.9 [place] [id number] [place] [address] 70131- 1959 Mar, Arthropathy, unspecified M12.9 [place] [id number] [place] [address] 02577- 6134 Jan, Arthropathy, unspecified M12.9 [place] [id number] [place] [address] 85269- 0504 Jan, Dysuria R30.0 and Encounter for immunization Z23 [place] [facility] [id number] [place] [address] 42067- 9394 Jan, Arthropathy, unspecified M12.9 [place] [id number] [place] [address] 64614- 8252 Dec, Arthropathy, unspecified M12.9 and Mixed hyperlipidemia E78.2 [place] [address] [place] [address] 9746 Dec, [facility] [address] [address] 8277 Nov, [facility] [address] [address] 9413 Oct, [facility] [address] [address]- 0464 Sep, [facility] [address], [place] [address]- 9438 Aug, [facility] [id number] [place] [address] 68945- 9113 Aug, Type 2 diabetes mellitus without complications E11.9 [facility] [address], [place] [address]- 5784 Jul, Arthropathy, unspecified M12.9 [facility] [address] [address]- 8901 Jul, [facility] [address] [address]- 3909 June, Arthropathy, unspecified M12.9 [facility] [address] [address]- 7887 May, Arthropathy, unspecified M12.9 [facility] [address] [address]- 6103 Apr, Arthropathy, unspecified M12.9 [facility] [id number] [address]- 1123 Mar, DM w/o complication type II 250.00 and UTI (urinary tract infection) N39.0 [facility] [id number] [address]- 1230 Jan, [facility] [address] [address]- 1058 Dec, [facility] [address], [place] [address]- 5639 Nov, [facility] [address] [place] [address]- 1328 Nov, [facility] [address] [place] [address]- 0775 Nov, [facility] [id number] [place] [address] 84102- 0410 Nov, Dysuria R30.0 [facility] [id number] [place] [address] 05011- 7346 Nov, Dysuria R30.0 [facility] [address] [place] [address] 56327- 0219 Oct, DM w/o complication type II 250.00 ; Arthritis 716.90 ; Herpes zoster 053.9 and Flu vaccine need V04.81 [facility] [address], [place] [address]- 2359 Sep, [facility] [id number] [place] [address] 05725- 6379 Sep, [facility] [address], [place] [address]- 0830 Aug, [facility] [address], [place] [address]- 9312 Aug, Chronic kidney disease 585.9 [facility] [address], [place] [address]- 6974 Aug, [facility] [address], [place] [address]- 4861 Jul, [facility] [address], [place] [address]- 8973 Jul, Urinary tract infection, site not specified 599.0 and Arthropathy 716.90 [facility] [id number] [address]- 4166 Jul, [facility] [address] [id number], [place] [address]- 3756 Jul, [facility] [place] [facility] [address] [facility] [id number], [place] [address]- 2748 Jul, Chronic kidney disease 585.9 [facility] [place] [facility] [address] [facility] [id number], [place] [address]- 7191 Jul, Muscle strain of left upper arm 840.9 [facility] [place] [facility] [address] [id number] [place] [address]- 8758 June, [facility] [place] [facility] [address] [facility] [id number], [place] [address]- 8209 June, [facility] [place] [facility] [address] [facility] [id number], [place] [address]- 6734 June, [facility] [place] [facility] [address] [facility] [id number], [place] [address]- 0648 May, [facility] [place] [facility] [address] [id number], [place] [address]- 8706 May, [facility] [place] [facility] [address] [facility] [id number], [place] [address]- 3511 Apr, [facility] [place] [facility] [address] [id number], [place] [address]- 6701 24 Apr, 2014 [facility] [place] [facility] [address] [id number], [place] [address]- 0685 16 Apr, 2014 [facility] [place] [facility] [address] [id number], [place] [address]- 7064 Apr, [facility] [place] [facility] [address] [id number], [place] [address]- 0573 Apr, [facility] [place] [facility] [address] [facility] [id number]- 0144 16 Apr, 2014 [facility] [place] [facility] [address] [id number], [place] [address]- 0284 Apr, [facility] [place] [facility] [address] [id number] [place] [address]- 4993 Jan, [facility] [place] [facility] [address] [id number] [place] [address]- 5802 Jan, [facility] [place] [facility] [address] [id number] [place] [address]- 7431 Jan, [facility] [place] [facility] [address] [id number] [place] [address]- 2355 Jan, [facility] [place] [facility] [address] [id number] [place] [address]- 4696 Oct, [facility] [place] [facility] [address] [id number] [place] [address]- 5390 Oct, [facility] [place] [facility] [address] [id number] [place] [address]- 6004 Oct, [facility] [place] [facility] [address] [id number] [place] [address]- 5909 Oct, [facility] [place] [facility] [address] [id number] [place] [address]- 9624 Oct, [facility] [place] [facility] [address] [id number] [place] [address]- 3687 Sep, [facility] [place] [facility] [address] [id number] [place] [address]- 2262 Sep, [facility] [place] [facility] [address] [id number], [place] [address]- 7502 Sep, [facility] [place] [facility] [address] [id number] [place] [address]- 0671 Sep, [facility] [place] [facility] [address] [id number] [place] [address]- 6733 Sep, [facility] [place] [facility] [address] [id number] [place] [address]- 6115 Sep, [facility] [place] [facility] [address] [id number] [place] [address]- 2546 Aug, [facility] [place] [facility] [address] [id number] [place] [address]- 9164 Aug, [facility] [place] [facility] [address] [id number] [place] [address]- 2546 Jul, [facility] [place] [facility] [address] [id number] [place] [address]- 4534 Jul, [facility] [place] [facility] [address] [id number] [place] [address]- 9466 June, [facility] [place] [facility] [address] [id number] [place] [address]- 1044 June, [facility] [place] [facility] [address] [id number] [place] [address]- 9619 June, [facility] [place] [facility] [address] [id number] [place] [address]- 5212 June, [facility] [place] [facility] [address] [id number] [place] [address]- 8944 May, [facility] [place] [facility] [address] [id number] [place] [address]- 4485 May, [facility] [place] [facility] [address] [id number] [place] [address]- 2544 Apr, [facility] [place] [facility] [address] [id number] [place] [address]- 8553 Mar, [facility] [place] [facility] [address] [id number] [place] [address]- 3260 Mar, [facility] [place] [facility] [address] [id number] [place] [address]- 6309 Jan, [facility] [place] [facility] [address] [id number] [place] [address]- 8116 Jan, [facility] [place] [facility] [address] [id number] [place] [address]- 7097 Nov, [facility] [address] [id number] [place] [address]- 3245 Nov, [facility] [place] [facility] [address] [id number] [place] [address]- 9916 Sep, [facility] [place] [facility] [address] [id number] [place] [address]- 6968 Aug, [facility] [place] [facility] [address] [id number] [place] [address]- 6063 Aug, [facility] [address] [id number] [place] [address]- 5539 Aug, [facility] [place] [facility] [address] [id number] [place] [address]- 0277 June, [facility] [place] [facility] [address] [id number] [place] [address]- 9786 June, [facility] [place] [facility] [address] [id number] [place] [address]- 4456 June, [facility] [place] [facility] [address] [id number] [place] [address]- 6507 June, [facility] [place] [facility] [address] [id number] [place] [address]- 0586 June, [facility] [place] [facility] [address] [id number] [place] [address]- 2546 June, [facility] [place] [facility] [address] [id number] [place] [address]- 2546 May, [facility] [place] [facility] [address] [id number] [place] [address]- 2546 Apr, [facility] [place] [facility] [address] [id number] [place] [address]- 2546 Apr, [facility] [place] [facility] [address] [id number] [place] [address]- 2546 Mar, [facility] [place] [facility] [address] [id number] [place] [address]- 4594 Mar, [facility] [address] [id number] [place] [address]- 7295 Mar, [facility] [address] [id number] [place] [address] 2546 Mar, [facility] [address] [id number] [place] [address]- 2356 Dec, [facility] [address] [id number] [place] [address]- 2542 Dec, [facility] [address] [id number] [place] [address]- 3256 Oct, [facility] [address] [id number] [place] [address]- 5216 June, [facility] [address] [id number] [place] [address]- 2668 May, [facility] [address] [id number] [place] [address]- 6166 29 Apr, 2011 [facility] [address] [id number] [place] [address]- 6974 27 Apr, 2011 [facility] [address] [id number] [place] [address]- 8748 16 Apr, 2011 [facility] [address] [id number] [place] [address]- 8385 14 Apr, 2011 [facility] [address] [id number] [place] [address]- 0851 12 Apr, 2011 [facility] [address] [id number] [place] [address]- 8426 Jan, [facility] [address] [id number] [place] [address]- 2546 Nov, [facility] [address] [id number] [place] [address]- 9643 Jan, [facility] [address] [facility] [id number] [place] [address]11 Nov, IMMUNIZATIONS No Known Immunizations SOCIAL HISTORY Never Assessed REASON FOR VISIT cough(dry), diarrhia, SOB, tired and weak-[place] MA PLAN OF CARE Activity Details Follow Up prn Reason: VITAL SIGNS Height 66 in 2017-01-25 Weight 198.3 lbs 2017-01-25 Temperature 98.1 degrees Fahrenheit 2017-01-25 Heart Rate 98 bpm 2017-01-25 Respiratory Rate 20 2017-01-25 Oximetry on room air:95 % 2017-01-25 BMI 32.00 kg/m2 2017-01-25 Blood pressure systolic 128 mmHg 2017-01-25 Blood pressure diastolic 62 mmHg 2017-01-25 MEDICATIONS Medication Instructions Dosage Frequency Start Date End Date Duration Status Claritin 10 mg Orally Once a day 1 tablet 24h Dec, Jan, 10 days Active Hydrocodone-Acetaminophen 5-325 MG Orally every 6 hrs 1 tablet as needed 6h Aug, 30 days Active Promethazine-Codeine 6.25-10 MG/5ML Orally every 6 hrs 5 ml as needed 6h Dec, Active NovoLog 100 INJECT 25 UNITS THREE TIMES A DAY UNDER THE SKIN 40 Active Ultra-Comfort Insulin Syringe 1/2 mL FOUR TIMES A DAY 30 Active meclizine 25 mg 1 tablet by Oral route 3 times per day PRN vertigo Jan, Not-Taking Tessalon Perles 100 mg Orally Three times a day 1 capsule as needed 8h Nov, Not-Taking Ibuprofen 400 MG Orally Every 12 hours 1 tablet 12h Active Pravachol 40 mg 1 tablet by Oral route 1 time per day Jan, Active Pravachol 40 TAKE 1 TABLET BY MOUTH DAILY 90 Active Lotrel 5-20 TAKE ONE CAPSULE BY MOUTH ONE TIME A DAY 90 Active Meclizine HCl 25 mg Orally 3 times a day 1 tablet 8h 20 days Active Hydrochlorothiazide 25 TAKE ONE TABLET BY MOUTH DAILY 30 Active Lantus 100 INJECT 55 UNITS UNDER THE SKIN EVERY NIGHT AT BEDTIME 18 Active RESULTS No Results PROCEDURES Procedure Date Ordered Result Body Site MEASURE BLOOD OXYGEN LEVEL Jan 25, 2017 [facility] VISIT ESTABLISHED PATIENT Jan 25, 2017 INSTRUCTIONS MEDICATIONS ADMINISTERED No Known Medications MEDICAL (GENERAL) HISTORY Type Description Date Medical History Type 2 Diabetes Medical History Hypertension Medical History Hyperlipidemia Medical History IN 04/2017 Surgical History Malignant melanoma removed 1987 Surgical History Gallbladder removed 1999 Surgical History Several stents at [place]. 04/2017 Surgical History cataract surgery Hospitalization History Hyperkalemia 2005 Hospitalization History High Potassium 2009 Hospitalization History ecoli, blood sugar, UTI, at june 2016
--- OUTSIDE RECORDS SUMMARY | 2017-07-31 19:48 | XMS REPORT ---
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 Active 2411561333161 Problem Mixed hyperlipidemia E78.2 Active 981070232 Problem Arthropathy, unspecified M12.9 Active 891793592 Problem Hyperlipidemia, unspecified hyperlipidemia type E78.5 Active 28173989 Problem Essential hypertension I10 Active 48933430 ALLERGIES No Information ENCOUNTERS Encounter Location Date Diagnosis [facility] [place] [id number] [place] [id number] Apr, 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 ; Type 2 diabetes mellitus without complications E11.9 ; Chronic kidney disease, unspecified N18.9 ; Essential hypertension I10 and Hyperlipidemia, unspecified hyperlipidemia type E78.5 [place] [id number] [place] [address] 09879- 5566 Apr, [facility] [address] [address] Apr, [place] [id number] [place] [address] 87849- 5611 Mar, Type 2 diabetes mellitus without complications E11.9 ; Essential hypertension I10 and Arthropathy, unspecified M12.9 [facility] [address] [address] 39[address] Mar, [place] [address] [address] Mar, [facility] [id number] [place] [address] 70434- 0705 Dec, Cough R05 and Nasal congestion R09.81 [facility] [address] [address] Nov, Bronchitis J40 and Body aches R52 [facility] [id number] [place] [address] 97080- 2546 Sep, [facility] [id number] [place] [address] 86134- 4467 Sep, [facility] [id number] [place] [address] 03819- 6027 Sep, [facility] [id number] [place] [address] 70943- 7055 Aug, Arthropathy, unspecified M12.9 [facility] [id number] [place] [address] 36215- 2421 Jul, Arthropathy, unspecified M12.9 [facility] [id number] [place] [address] 78501- 3098 June, Type 2 diabetes mellitus without complications E11.9 ; Urinary tract infection without hematuria, site unspecified N39.0 and Arthropathy, unspecified M12.9 [facility] [id number] [place] [address] 01086- 0993 May, Vertigo R42 [facility] [address] [address] 37[address] May, [facility] [id number] [place] [address] 26153- 1905 May, Arthropathy, unspecified M12.9 [facility] [address] [address] 9088 Apr, Arthropathy, unspecified M12.9 [facility] [id number] [place] [address] 22342- 7389 Mar, Arthropathy, unspecified M12.9 [facility] [id number] [place] [address] 54893- 1917 Jan, Arthropathy, unspecified M12.9 [facility] [id number] [place] [address] 05438- 1622 Jan, Dysuria R30.0 and Encounter for immunization Z23 [facility] [id number] [place] [address] 42622- 7382 Jan, Arthropathy, unspecified M12.9 [facility] [id number] [place] [address] 75663- 6247 Dec, Arthropathy, unspecified M12.9 and Mixed hyperlipidemia E78.2 [facility] [id number] [place] [address] 66202- 7694 Dec, [facility] [id number] [place] [address] 74114- 8778 Nov, [facility] [id number] [place] [address] 24708- 1368 Oct, [facility] [id number] [place] [address] 97466- 0548 Sep, [facility] [id number] [place] [address] 20035- 7698 Aug, [facility] [id number] [place] [address] 98479- 9740 Aug, Type 2 diabetes mellitus without complications E11.9 [facility] [id number] [place] [address] 85319- 6090 Jul, Arthropathy, unspecified M12.9 [facility] [id number] [place] [address] 13592- 4681 Jul, [facility] [id number] [address] 3414 June, Arthropathy, unspecified M12.9 [facility] [id number] [place] [address] 186221- 8760 May, Arthropathy, unspecified M12.9 [facility] [id number] [place] [address] 131844- 3803 Apr, Arthropathy, unspecified M12.9 [facility] [id number] [place] [address] 042867- 4453 Mar, DM w/o complication type II 250.00 and UTI (urinary tract infection) N39.0 [facility] [id number] [place] [address] 879962- 8054 Jan, [facility] [id number] [place] [address] 67992- 4596 Dec, [facility] [id number] [place] [address] 13276- 2651 Nov, [facility] [id number] [place] [address] 05820- 2670 Nov, [facility] [id number] [place] [address] 60017- 2192 Nov, [facility] [id number] [place] [address] 33225- 8178 Nov, Dysuria R30.0 [facility] [id number] [place] [address] 34297- 8975 Nov, Dysuria R30.0 [facility] [id number] [place] [address] 66640- 3403 Oct, DM w/o complication type II 250.00 ; Arthritis 716.90 ; Herpes zoster 053.9 and Flu vaccine need V04.81 [facility] [address] [address] Sep, [place] [address] [id number] [address] 0401 Sep, [facility] [address] [facility] [id number] [address] 3599 Aug, [facility] [address] [facility] [id number] [place] [address]- 7308 Aug, Chronic kidney disease 585.9 [facility] [address] [id number] [place] [address] 0869 Aug, [facility] [address] [facility] [id number] [address]- 9699 Jul, [facility] [address] [facility] [id number] [address]- 5066 Jul, Urinary tract infection, site not specified 599.0 and Arthropathy 716.90 [facility] [id number] [address]- 4926 Jul, [facility] [address] [facility] [id number] [address]- 2224 Jul, [facility] [address] [facility] [id number] [place] [address] 8850 Jul, Chronic kidney disease 585.9 [facility] [address] [facility] [id number] [address] 4661 Jul, Muscle strain of left upper arm 840.9 [facility] [address] [facility] [id number] [address]- 8960 June, [facility] [address] [facility] [id number] [place] [address]- 9673 June, [facility] [address] [facility] [id number] [place] [address]- 5737 June, [facility] [address] [facility] [id number] [place] [address]- 0392 May, [facility] [address] [facility] [id number] [place] [address]- 5887 13 May, 2014 [facility] [place] [facility] [address] [id number] [place] [address]- 4634 24 Apr, 2014 [facility] [place] [facility] [address] [id number] [place] [address]- 0906 24 Apr, 2014 [facility] [place] [facility] [address] [id number] [place] [address]- 8151 16 Apr, 2014 [facility] [place] [facility] [address] [id number] [place] [address]- 8421 16 Apr, 2014 [facility] [place] [facility] [address] [id number] [place] [address]- 9854 16 Apr, 2014 [facility] [place] [facility] [address] [id number] [place] [address]- 1475 16 Apr, 2014 [facility] [place] [facility] [address] [id number] [place] [address]- 5141 Apr, [facility] [place] [facility] [address] [id number] [place] [address]- 3099 Jan, [facility] [place] [facility] [address] [id number] [place] [address]- 4788 Jan, [facility] [place] [facility] [address] [id number] [place] [address]- 9730 Jan, [facility] [place] [facility] [address] [id number] [place] [address]- 8406 Jan, [facility] [place] [facility] [address] [id number] [place] [address]- 6798 26 Oct, 2013 [facility] [place] [facility] [address] [id number] [place] [address]- 7204 26 Oct, 2013 [facility] [place] [facility] [address] [id number] [place] [address]- 0658 26 Oct, 2013 [facility] [place] [facility] [address] [id number] [place] [address]391 Oct, [facility] [place] [facility] [address] [id number] [place] [address]- 9450 Oct, [facility] [place] [facility] [address] [id number] [place] [address]- 0431 Sep, [facility] [place] [facility] [address] [id number] [place] [address]- 6035 Sep, [facility] [place] [facility] [address] [id number] [place] [address]- 1227 Sep, [facility] [place] [facility] [address] [id number] [place] [address]- 4198 Sep, [facility] [place] [facility] [address] [id number] [place] [address]- 5911 Sep, [facility] [place] [facility] [address] [id number] [place] [address]- 2576 Sep, [facility] [place] [facility] [address] [id number] [place] [address]- 2454 Aug, [facility] [place] [facility] [address] [id number] [place] [address]- 4367 Aug, [facility] [place] [facility] [address] [id number] [place] [address]- 3891 Jul, [facility] [place] [facility] [address] [id number] [place] [address]- 1062 Jul, [facility] [place] [facility] [address] [id number] [place] [address]- 0432 June, [facility] [place] [facility] [address] [id number] [place] [address]- 8959 June, [facility] [place] [facility] [address] [id number] [place] [address]- 0885 June, [facility] [place] [facility] [address] [id number] [place] [address]- 4228 June, [facility] [place] [facility] [address] [id number] [place] [address]- 4616 May, [facility] [place] [facility] [address] [id number] [place] [address]- 6794 May, [facility] [place] [facility] [address] [id number] [place] [address]- 5666 Apr, [facility] [place] [facility] [address] [id number] [place] [address]- 7619 Mar, [facility] [place] [facility] [address] [id number] [place] [address]- 8554 Mar, [facility] [place] [facility] [address] [id number] [place] [address]- 0054 Jan, [facility] [place] [facility] [address] [id number] [place] [address]- 5396 Jan, [facility] [place] [facility] [address] [id number] [place] [address]- 8397 Nov, [facility] [place] [facility] [address] [id number] [place] [address]- 5555 Nov, [facility] [place] [facility] [address] [id number] [place]679 Sep, [facility] [place] [facility] [address] [id number] [place] [address]- 8547 Aug, [facility] [place] [facility] [address] [id number] [place] [address]- 5991 Aug, [facility] [place] [facility] [address] [id number] [place] [address]- 4564 Aug, [facility] [place] [facility] [address] [id number] [place] [address]- 0939 June, [facility] [place] [facility] [address] [id number] [place] [address]- 0006 June, [facility] [place] [facility] [address] [id number] [place] [address]- 6728 June, [facility] [place] [facility] [address] [id number] [place] [address] 2546 June, [facility] [address] [id number] [place] [address]- 5598 June, [facility] [address] [id number] [place] [address]- 2546 June, [facility] [address] [id number] [place] [address]- 3116 May, [facility] [address] [id number] [place] [address]- 5115 Apr, [facility] [address] [id number] [place] [address]- 3396 Apr, [facility] [address] [id number] [place] [address]- 0786 Mar, [facility] [address] [id number] [place] [address]- 1808 Mar, [facility] [address] [id number] [place] [address]- 4129 Mar, [facility] [address] [id number] [place] [address]- 8966 Mar, [facility] [address] [id number] [place] [address]- 3636 Dec, [facility] [address] [id number] [place] [address]- 2546 Dec, [facility] [address] [id number] [place] [address]- 2546 Oct, [facility] [address] [id number] [place] [address]- 2546 June, [facility] [address] [id number] [place] [address]- 2546 May, [facility] [address] [id number] [place] [address] 2546 Apr, [facility] [id number] [address]- 9196 27 Apr, 2011 [facility] [address] [address]- 3113 16 Apr, 2011 [facility] [id number] [address]- 6183 14 Apr, 2011 [facility] [address] [address]- 5409 12 Apr, 2011 [facility] [address] [address]- 1160 Jan, [facility] [address] [address]- 4135 Nov, [facility] [address] [address]- 1926 Jan, [facility] [id number] [address]- 4447 Nov, IMMUNIZATIONS No Known Immunizations SOCIAL HISTORY Never Assessed REASON FOR VISIT Controlled Med Refill PLAN OF CARE VITAL SIGNS MEDICATIONS Medication Instructions Dosage Frequency Start Date End Date Duration Status Hydrocodone-Acetaminophen 5-325 MG Orally every 6 hrs 1 tablet as needed 6h Aug, 30 days Active RESULTS No Results PROCEDURES No Known procedures INSTRUCTIONS MEDICATIONS ADMINISTERED No Known Medications MEDICAL (GENERAL) HISTORY Type Description Date Medical History Type 2 Diabetes Medical History Hypertension Medical History Hyperlipidemia Medical History [place] 04/2017 Surgical History Malignant melanoma removed 1987 Surgical History Gallbladder removed 1999 Surgical History Several stents at [place]. 04/2017 Surgical History cataract surgery Hospitalization History Hyperkalemia 2005 Hospitalization History High Potassium 2009 Hospitalization History ecoli, blood sugar, UTI, at june 2016
--- OUTSIDE RECORDS SUMMARY | 2017-07-31 19:49 | XMS REPORT | Continuity of Care Document ---
Author Author Count Includes [facility] of [facility] Address Unknown Phone Unavailable Allergies Active Description Code Type Severity Reaction Onset Reported/Identified Relationship to Patient Clinical Status Yes NKANo Known Allergies NKA Miscellaneous Allergy Unknown N/A 08/29/2005 Medications There is no data. Problems Date Dx Coded Attending Type Code Diagnosis Diagnosed By 06/24/2009 MERLIN OLMOS MD 599.0 URINARY TRACT INFECTION 06/24/2009 NICKOLAS VANCE, MERLIN 787.91 DIARRHEA 06/24/2009 599.0 URINARY TRACT INFECTION 06/24/2009 787.91 DIARRHEA 06/24/2009 599.0 URINARY TRACT INFECTION 06/24/2009 787.91 DIARRHEA 06/24/2009 MERLIN OLMOS MD 599.0 URINARY TRACT INFECTION 06/24/2009 NICKOLAS VANCE, MERLIN 787.91 DIARRHEA 06/24/2009 NICKOLAS VANCE, MERLIN 599.0 URINARY TRACT INFECTION 06/24/2009 NICKOLAS VANCE, MERLIN 787.91 DIARRHEA 06/24/2009 NICKOLAS VANCE, MERLIN 599.0 URINARY TRACT INFECTION 06/24/2009 NICKOLAS VANCE, MERLIN 787.91 DIARRHEA 06/24/2009 NICKOLAS VANCE, MERLIN 599.0 URINARY TRACT INFECTION 06/24/2009 NICKOLAS VANCE, MERLIN 787.91 DIARRHEA 06/24/2009 NICKOLAS VANCE, MERLIN 599.0 URINARY TRACT INFECTION 06/24/2009 NICKOLAS VANCE, MERLIN 787.91 DIARRHEA 06/24/2009 NICKOLAS VANCE, MERLIN 599.0 URINARY TRACT INFECTION 06/24/2009 NICKOLAS VANCE, MERLIN 787.91 DIARRHEA 11/05/2009 MERLIN OLMOS MD 311 DEPRESSIVE DISORDER NOS 11/05/2009 MERLIN OLMOS MD 401.9 HYPERTENSION, UNSPECIFIED ESSENTIAL 11/05/2009 311 DEPRESSIVE DISORDER NOS 11/05/2009 401.9 HYPERTENSION, UNSPECIFIED ESSENTIAL 11/05/2009 311 DEPRESSIVE DISORDER NOS 11/05/2009 401.9 HYPERTENSION, UNSPECIFIED ESSENTIAL 11/05/2009 NICKOLAS VANCE, MERLIN 311 DEPRESSIVE DISORDER NOS 11/05/2009 NICKOLAS VANCE, MERLIN 401.9 HYPERTENSION, UNSPECIFIED ESSENTIAL 11/05/2009 NICKOLAS VANCE, MERLIN 311 DEPRESSIVE DISORDER NOS 11/05/2009 NICKOLAS VANCE, MERLIN 401.9 HYPERTENSION, UNSPECIFIED ESSENTIAL 11/05/2009 NICKOLAS VANCE, MERLIN 311 DEPRESSIVE DISORDER NOS 11/05/2009 NICKOLAS VANCE, MERLIN 401.9 HYPERTENSION, UNSPECIFIED ESSENTIAL 11/05/2009 NICKOLAS VANCE, MERLIN 311 DEPRESSIVE DISORDER NOS 11/05/2009 NICKOLAS VANCE, MERLIN 401.9 HYPERTENSION, UNSPECIFIED ESSENTIAL 11/05/2009 NICKOLAS VANCE, MERLIN 311 DEPRESSIVE DISORDER NOS 11/05/2009 NICKOLAS VANCE, MERLIN 401.9 HYPERTENSION, UNSPECIFIED ESSENTIAL 11/05/2009 NICKOLAS VANCE, MERLIN 311 DEPRESSIVE DISORDER NOS 11/05/2009 NICKOLAS VANCE, MERLIN 401.9 HYPERTENSION, UNSPECIFIED ESSENTIAL 11/26/2009 NICKOLAS VANCE, MERLIN 250.00 DIABETES II CONTROLLED 11/26/2009 250.00 DIABETES II CONTROLLED 11/26/2009 250.00 DIABETES II CONTROLLED 11/26/2009 NICKOLAS VANCE, MERLIN 250.00 DIABETES II CONTROLLED 11/26/2009 NICKOLAS VANCE, MERLIN 250.00 DIABETES II CONTROLLED 11/26/2009 NICKOLAS VANCE, MERLIN 250.00 DIABETES II CONTROLLED 11/26/2009 NICKOLAS VANCE, MERLIN 250.00 DIABETES II CONTROLLED 11/26/2009 NICKOLAS VANCE, MERLIN 250.00 DIABETES II CONTROLLED 11/26/2009 NICKOLAS VANCE, MERLIN 250.00 DIABETES II CONTROLLED 11/27/2009 MERLIN OLMOS MD 309.0 AD ADJ D/O W DEPRESSED 11/27/2009 309.0 AD ADJ D/O W DEPRESSED 11/27/2009 309.0 AD ADJ D/O W DEPRESSED 11/27/2009 MERLIN OLMOS MD 309.0 AD ADJ D/O W DEPRESSED 11/27/2009 MERLIN OLMOS MD 309.0 AD ADJ D/O W DEPRESSED 11/27/2009 MERLIN OLMOS MD 309.0 AD ADJ D/O W DEPRESSED 11/27/2009 MERLIN OLMOS MD 309.0 AD ADJ D/O W DEPRESSED 11/27/2009 NICKOLAS VANCE, MERLIN 309.0 AD ADJ D/O W DEPRESSED 11/27/2009 MERLIN OLMOS MD 309.0 AD ADJ D/O W DEPRESSED 05/29/2010 MERLIN OLMOS MD 355.0 LESION OF SCIATIC NERVE 05/29/2010 355.0 LESION OF SCIATIC NERVE 05/29/2010 355.0 LESION OF SCIATIC NERVE 05/29/2010 MERLIN OLMOS MD 355.0 LESION OF SCIATIC NERVE 05/29/2010 MERLIN OLMOS MD 355.0 LESION OF SCIATIC NERVE 05/29/2010 MERLIN OLMOS MD 355.0 LESION OF SCIATIC NERVE 05/29/2010 MERLIN OLMOS MD 355.0 LESION OF SCIATIC NERVE 05/29/2010 MERLIN OLMOS MD 355.0 LESION OF SCIATIC NERVE 05/29/2010 MERLIN OLMOS MD 355.0 LESION OF SCIATIC NERVE 10/06/2010 MERLIN OLMOS MD 728.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 10/06/2010 728.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 10/06/2010 728.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 10/06/2010 MERLIN OLMOS MD 728.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 10/06/2010 MERLIN OLMOS MD 728.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 10/06/2010 MERLIN OLMOS MD 728.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 10/06/2010 MERLIN OLMOS MD 728.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 10/06/2010 MERLIN OLMOS MD 728.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 10/06/2010 MERLIN OLMOS MD 728.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 08/07/2013 TOLU JOSHI DO Ot 250.00 DIAB [place]ISE WO COMPL, TYPE II OR UNSPEC TY 08/07/2013 TOLU JOSHI DO Ot 272.0 PURE HYPERCHOLESTEROLEM 08/07/2013 TOLU JOSHI DO Ot 362.50 MACULAR DEGENERATION NOS 08/07/2013 TOLU JOSHI DO Ot 401.9 HYPERTENSION NOS 08/07/2013 TOLU JOSHI DO Ot 599.0 URIN TRACT INFECTION NOS 08/07/2013 TOLU JOSHI DO Ot 780.4 DIZZINESS AND GIDDINESS 08/07/2013 TOLU JOSHI DO Ot 782.3 EDEMA 08/07/2013 TOLU JOSHI DO Ot V58.67 LONG-TERM (CURRENT) USE OF INSULIN 11/09/2013 MERLIN OLMOS MD 715.04 OSTEOARTHROSIS GENERALIZED INVOLVING HAND 11/09/2013 MERLIN OLMOS MD 715.04 OSTEOARTHROSIS GENERALIZED INVOLVING HAND 11/09/2013 MERLIN OLMOS MD 715.04 OSTEOARTHROSIS GENERALIZED INVOLVING HAND 11/09/2013 MERLIN OLMOS MD 715.04 OSTEOARTHROSIS GENERALIZED INVOLVING HAND 11/09/2013 MERLIN OLMOS MD 715.04 OSTEOARTHROSIS GENERALIZED INVOLVING HAND 11/28/2013 RAS POLLARD DO Ot 780.4 DIZZINESS AND GIDDINESS 11/28/2013 RAS POLLARD DO Ot 916.0 ABRASION HIP LEG 11/28/2013 RAS POLLARD DO, Ot 924.11 CONTUSION OF KNEE 11/28/2013 RAS POLLARD DO Ot 959.7 LOWER LEG INJURY NOS 11/28/2013 RAS POLLARD DO Ot E000.8 OTHER EXTERNAL CAUSE STATUS 11/28/2013 RAS POLLARD DO, Ot E849.0 ACCIDENT IN HOME 11/28/2013 RAS POLLARD DO Ot E888.9 FALL NOS 11/28/2013 RAS POLLARD DO Ot V06.1 [id number], COMBINED [ 09/05/2014 JOSELO VANCE, LEONOR Hinds Ot 715.34 LOC OSTEOARTH NOS-HAND 09/05/2014 LEONOR JOSUE MD Ot 914.0 ABRASION HAND 09/05/2014 LEONOR JOSUE MD Ot 920 CONTUSION FACE/SCALP/NCK 09/05/2014 LEONOR JOSUE MD Ot 959.4 HAND INJURY NOS 09/05/2014 LEONOR JOSUE MD Ot E849.0 ACCIDENT IN HOME 09/05/2014 LEONOR JOSUE MD Ot E885.9 FALL FROM SLIPPING, TRIPPING, OR STUMBLI 06/23/2016 NARA SEGOVIA MD, Ot A41.9 SEPSIS, UNSPECIFIED ORGANISM 06/23/2016 NARA SEGOVIA MD, Ot B96.20 UNSP ESCHERICHIA COLI THE CAUSE OF DI 06/23/2016 NARA SEGOVIA MD, Ot D64.9 ANEMIA, UNSPECIFIED 06/23/2016 NARA SEGOVIA MD Ot E11.649 TYPE 2 DIABETES MELLITUS WITH HYPOGLYCEM 06/23/2016 NARA SEGOVIA MD Ot E86.0 DEHYDRATION 06/23/2016 NARA SEGOVIA MD Ot I10 ESSENTIAL (PRIMARY) HYPERTENSION 06/23/2016 NARA SEGOVIA MD Ot N28.9 DISORDER OF KIDNEY AND URETER, UNSPECIFI 06/23/2016 NARA SEGOVIA MD Ot N39.0 URINARY TRACT INFECTION, SITE NOT SPECIF 06/23/2016 NARA SEGOVIA MD, Ot 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 06/25/2016 NARA SEGOVIA MD Ot A41.9 SEPSIS, UNSPECIFIED ORGANISM 06/25/2016 NARA SEGOVIA MD Ot B96.20 UNSP ESCHERICHIA COLI THE CAUSE OF DI 06/25/2016 NARA SEGOVIA MD, Ot D64.9 ANEMIA, UNSPECIFIED 06/25/2016 NARA SEGOVIA MD, Ot E11.649 TYPE 2 DIABETES MELLITUS WITH HYPOGLYCEM 06/25/2016 NARA SEGOVIA MD Ot E86.0 DEHYDRATION 06/25/2016 NARA SEGOVIA MD Ot I10 ESSENTIAL (PRIMARY) HYPERTENSION 06/25/2016 NARA SEGOVIA MD, Ot N28.9 DISORDER OF KIDNEY AND URETER, UNSPECIFI 06/25/2016 NARA SEGOVIA MD Ot N39.0 URINARY TRACT INFECTION, SITE NOT SPECIF 06/25/2016 NARA SEGOVIA MD, Ot Z79.4 PRISON (CURRENT) USE OF INSULIN 04/22/2017 SHAMIR VANCE FACC, DARSHANA FACP CCDS Ot E11.21 TYPE 2 DIABETES MELLITUS WITH DIABETIC N 04/22/2017 SHAMIR VANCE FACC, DARSHANA FACP CCDS Ot E78.5 HYPERLIPIDEMIA, UNSPECIFIED 04/22/2017 DARSHANA BARKSDALE MD, FACC FACP CCDS Ot I12.9 HYPERTENSIVE CHRONIC KIDNEY DISEASE W ST 04/22/2017 SHAMIR VANCE FACC, DARSHANA FACP CCDS Ot I21.09 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 04/22/2017 SHAMIR VANCE FACC ALI FACP CCDS Ot I25.10 ATHSCL HEART DISEASE OF [place] CORONARY 04/22/2017 DARSHANA BARKSDALE MD, FACC FACP CCDS Ot N18.3 CHRONIC KIDNEY DISEASE, STAGE 3 (MODERAT 04/22/2017 SHAMIR VANCE FACC, ALI FACP CCDS Ot R57.0 CARDIOGENIC SHOCK 04/22/2017 SHAMIR VANCE FACC, ALI FACP CCDS Ot Z79.4 PRISON (CURRENT) USE OF INSULIN 04/22/2017 SHAMIR VANCE FACC, ALI FACP CCDS Ot Z79.899 OTHER ONCOLOGY REP SPECIALIST (CURRENT) DRUG THERAPY 04/26/2017 SHAMIR VANCE FACC, ALI FACP CCDS Ot E11.21 TYPE 2 DIABETES MELLITUS WITH DIABETIC N 04/26/2017 SHAMIR VANCE FACC, ALI FACP CCDS Ot E78.5 HYPERLIPIDEMIA, UNSPECIFIED 04/26/2017 SHAMIR VANCE FACC, ALI FACP CCDS Ot I12.9 HYPERTENSIVE CHRONIC KIDNEY DISEASE W ST 04/26/2017 SHAMIR VANCE FACC, ALI FACP CCDS Ot 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.09 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 04/26/2017 SHAMIR VANCE FACC, ALI FACP CCDS Ot I25.10 ATHSCL HEART DISEASE OF [place] CORONARY 04/26/2017 SHAMIR VANCE FACC, ALI FACP CCDS Ot N18.9 CHRONIC KIDNEY DISEASE, UNSPECIFIED 04/26/2017 SHAMIR VANCE FACC, ALI FACP CCDS Ot R57.0 CARDIOGENIC SHOCK 04/26/2017 SHAMIR VANCE FACC, ALI FACP CCDS Ot Z79.4 PRISON (CURRENT) USE OF INSULIN 04/26/2017 SHAMIR VANCE FACC, ALI FACP CCDS Ot Z79.899 OTHER PRISON (CURRENT) DRUG THERAPY Procedures Code Description [place] [address] A1C (IN-HOUSE) 07/21/2012 94493 OXIMETRY 11/09/2013 21882 A1C (IN-HOUSE) 11/09/2013 15054 A1C (IN-HOUSE) 02/19/2014 01282 UA LONG DIP 05/22/2014 28009 A1C (IN-HOUSE) 05/22/2014 [id number] MEASURE OF CARDIAC SAMPL PRESSURE, L H 04/22/2017 [id number] ASSIST WITH CARDIAC OUTPUT USING BALLOON 04/22/2017 [id number] FLUOROSCOPY OF MULT COR ART USING L OSM 04/22/2017 [id number] FLUOROSCOPY OF LEFT HEART USING LOW OSMO 04/22/2017 Results Test Result Range Complete blood count (CBC) with automated white blood cell (WBC) differential - 06/22/16 23:10 Blood leukocytes automated count (number/volume) 12.7 10*3/uL 4.3-11.0 Blood erythrocytes automated count (number/volume) 3.95 10*6/uL 4.35-5.85 Venous blood hemoglobin measurement (mass/volume) 11.5 g/dL 11.5-16.0 Blood hematocrit (volume fraction) 36 % 35-52 Automated erythrocyte mean corpuscular volume 91 [foz_us] 80-99 Automated erythrocyte mean corpuscular hemoglobin (mass per erythrocyte) 29 pg 25-34 Automated erythrocyte mean corpuscular hemoglobin concentration measurement ( mass/volume) 32 g/dL 32-36 Automated erythrocyte distribution width ratio 13.8 % 10.0-14.5 Automated blood platelet count (count/volume) 244 10*3/uL 130-400 Automated blood platelet mean volume measurement 11.7 [foz_us] 7.4-10.4 Automated blood neutrophils/100 leukocytes 90 % 42-75 Automated blood lymphocytes/100 leukocytes 4 % 12-44 Blood monocytes/100 leukocytes 5 % 0-12 Automated blood eosinophils/100 leukocytes 0 % 0-10 Automated blood basophils/100 leukocytes 0 % 0-10 Blood neutrophils automated count (number/volume) 11.5 10*3 1.8-7.8 Blood lymphocytes automated count (number/volume) 0.5 10*3 1.0-4.0 Blood monocytes automated count (number/volume) 0.7 10*3 0.0-1.0 Automated eosinophil count 0.0 10*3/uL 0.0-0.3 Automated blood basophil count (count/volume) 0.0 10*3/uL 0.0-0.1 Blood manual differential performed detection - 06/22/16 23:10 Blood monocytes/100 leukocytes 3 % NRG Manual blood segmented neutrophils/100 leukocytes 65 % NRG Blood band neutrophils/100 leukocytes 26 % NRG Manual blood lymphocytes/100 leukocytes 6 % NRG Manual eosinophils/100 leukocytes in nose 0 % NRG Manual blood basophils/100 leukocytes 0 % NRG Blood erythrocyte morphology finding identification [facility] Comprehensive metabolic panel - 06/22/16 23:10 Serum or plasma sodium measurement (moles/volume) 138 mmol/L 135-145 Serum or plasma potassium measurement (moles/volume) 4.4 mmol/L 3.6-5.0 Serum or plasma chloride measurement (moles/volume) 105 mmol/L 98-107 Carbon dioxide 17 mmol/L 21-32 Serum or plasma anion gap determination (moles/volume) 16 mmol/L 5-14 Serum or plasma urea nitrogen measurement (mass/volume) 60 mg/dL 7-18 Serum or plasma creatinine measurement (mass/volume) 1.91 mg/dL 0.60-1.30 Serum or plasma urea nitrogen/creatinine mass ratio 31 NRG Serum or plasma creatinine measurement with calculation of estimated glomerular filtration rate 25 NRG Serum or plasma glucose measurement (mass/volume) 60 mg/dL 70-105 Serum or plasma calcium measurement (mass/volume) 9.6 mg/dL 8.5-10.1 Serum or plasma total bilirubin measurement (mass/volume) 0.4 mg/dL 0.1-1.0 Serum or plasma alkaline phosphatase measurement (enzymatic activity/volume) 78 U/L 40-136 Serum or plasma aspartate aminotransferase measurement (enzymatic activity/ volume) 28 U/L 5-34 Serum or plasma alanine aminotransferase measurement (enzymatic activity/volume ) 36 U/L 0-55 Serum or plasma protein measurement (mass/volume) 7.0 g/dL 6.4-8.2 Serum or plasma albumin measurement (mass/volume) 4.0 g/dL 3.2-4.5 Complete urinalysis with reflex to culture - 06/23/16 00:28 Urine color determination YELLOW NRG Urine clarity determination SLIGHTLY CLOUDY NRG Urine pH measurement by test strip 5 5-9 Specific gravity of urine by test strip 1.020 1.016- 1.022 Urine protein assay by test strip, semi-quantitative NEGATIVE NEGATIVE Urine glucose detection by automated test strip NEGATIVE NEGATIVE Erythrocytes detection in urine sediment by light microscopy 3+ NEGATIVE Urine ketones detection by automated test strip NEGATIVE NEGATIVE Urine nitrite detection by test strip NEGATIVE NEGATIVE Urine total bilirubin detection by test strip NEGATIVE NEGATIVE Urine urobilinogen measurement by automated test strip (mass/volume) NORMAL NORMAL Urine leukocyte esterase detection by dipstick 3+ NEGATIVE Automated urine sediment erythrocyte count by microscopy (number/high power field) [HPF] NRG Automated urine sediment leukocyte count by microscopy (number/high power field ) [HPF] NRG Bacteria detection in urine sediment by light microscopy MODERATE NRG Squamous epithelial cells detection in urine sediment by light microscopy 10-25 NRG Crystals detection in urine sediment by light microscopy NONE NRG Casts detection in urine sediment by light microscopy NONE NRG Mucus detection in urine sediment by light microscopy SMALL NRG Complete urinalysis with reflex to culture YES NRG Capillary blood glucose measurement by glucometer (mass/volume) - 06/23/16 00: 28 Capillary blood glucose measurement by glucometer (mass/volume) 142 mg/dL 70-110 Bacterial urine culture - 06/23/16 00:28 Bacterial urine culture [id number] NRG COLONY COUNT >100,000/ML NRG FTX;REPORTABLE SENSITIVITY REPORTED 06/24 07:00 NRG Bacterial susceptibility panel - 06/23/16 00:28 Gentamicin susceptibility test by minimum inhibitory concentration < = NRG Trimethoprim/sulfamethoxazole susceptibility test by minimum inhibitoryconcentration <= NRG Ampicillin susceptibility test by minimum inhibitory concentration < = NRG Tobramycin susceptibility test by minimum inhibitory concentration < = NRG Cefazolin susceptibility test by minimum inhibitory concentration < = NRG Ceftriaxone susceptibility test by minimum inhibitory concentration <= NRG Ampicillin/sulbactam susceptibility test by minimum inhibitory concentration <= NRG Piperacillin/tazobactam susceptibility test by minimum inhibitory concentration <= NRG Ciprofloxacin susceptibility test by minimum inhibitory concentration <= NRG Meropenem susceptibility test by minimum inhibitory concentration < = NRG Nitrofurantoin susceptibility test by minimum inhibitory concentration <= NRG Aztreonam susceptibility test by minimum inhibitory concentration < = NRG Extended spectrum beta lactamase (ESBL) producing bacteria susceptibility test by minimum inhibitory concentration - NR Bacterial blood culture - 06/23/16 00:59 Bacterial blood culture NG NRG Blood lactic acid measurement (moles/volume) - 06/23/16 01:00 Blood lactic acid measurement (moles/volume) 2.26 mmol/L 0.50-2.00 Bacterial blood culture - 06/23/16 01:12 Bacterial blood culture NG NRG Capillary blood glucose measurement by glucometer (mass/volume) - 06/23/16 01: 37 Capillary blood glucose measurement by glucometer (mass/volume) 107 mg/dL 70-110 Serum or plasma lactate measurement (moles/volume) - 06/23/16 02:54 Serum or plasma lactate measurement (moles/volume) 1.74 mmol/L 0.50-2.00 Complete blood count (CBC) with automated white blood cell (WBC) differential - 06/23/16 05:45 Blood leukocytes automated count (number/volume) 9.0 10*3/uL 4.3-11.0 Blood erythrocytes automated count (number/volume) 3.51 10*6/uL 4.35-5.85 Venous blood hemoglobin measurement (mass/volume) 10.4 g/dL 11.5-16.0 Blood hematocrit (volume fraction) 32 % 35-52 Automated erythrocyte mean corpuscular volume 92 [foz_us] 80-99 Automated erythrocyte mean corpuscular hemoglobin (mass per erythrocyte) 30 pg 25-34 Automated erythrocyte mean corpuscular hemoglobin concentration measurement ( mass/volume) 32 g/dL 32-36 Automated erythrocyte distribution width ratio 13.6 % 10.0-14.5 Automated blood platelet count (count/volume) 173 10*3/uL 130-400 Automated blood platelet mean volume measurement 11.6 [foz_us] 7.4-10.4 Automated blood neutrophils/100 leukocytes 84 % 42-75 Automated blood lymphocytes/100 leukocytes 9 % 12-44 Blood monocytes/100 leukocytes 8 % 0-12 Automated blood eosinophils/100 leukocytes 0 % 0-10 Automated blood basophils/100 leukocytes 0 % 0-10 Blood neutrophils automated count (number/volume) 7.6 10*3 1.8-7.8 Blood lymphocytes automated count (number/volume) 0.8 10*3 1.0-4.0 Blood monocytes automated count (number/volume) 0.7 10*3 0.0-1.0 Automated eosinophil count 0.0 10*3/uL 0.0-0.3 Automated blood basophil count (count/volume) 0.0 10*3/uL 0.0-0.1 Whole blood basic metabolic panel - 06/23/16 05:45 Serum or plasma sodium measurement (moles/volume) 137 mmol/L 135-145 Serum or plasma potassium measurement (moles/volume) 3.9 mmol/L 3.6-5.0 Serum or plasma chloride measurement (moles/volume) 109 mmol/L 98-107 Carbon dioxide 18 mmol/L 21-32 Serum or plasma anion gap determination (moles/volume) 10 mmol/L 5-14 Serum or plasma urea nitrogen measurement (mass/volume) 55 mg/dL 7-18 Serum or plasma creatinine measurement (mass/volume) 1.53 mg/dL 0.60-1.30 Serum or plasma urea nitrogen/creatinine mass ratio 36 NRG Serum or plasma creatinine measurement with calculation of estimated glomerular filtration rate 33 NRG Serum or plasma glucose measurement (mass/volume) 118 mg/dL 70-105 Serum or plasma calcium measurement (mass/volume) 8.7 mg/dL 8.5-10.1 Capillary blood glucose measurement by glucometer (mass/volume) - 06/23/16 12: 06 Capillary blood glucose measurement by glucometer (mass/volume) 139 mg/dL 70-110 Capillary blood glucose measurement by glucometer (mass/volume) - 06/23/16 16: 23 Capillary blood glucose measurement by glucometer (mass/volume) 185 mg/dL 70-110 Capillary blood glucose measurement by glucometer (mass/volume) - 06/23/16 20: 26 Capillary blood glucose measurement by glucometer (mass/volume) 112 mg/dL 70-110 Capillary blood glucose measurement by glucometer (mass/volume) - 06/24/16 05: 14 Capillary blood glucose measurement by glucometer (mass/volume) 65 mg/dL 70-110 Complete blood count (CBC) with automated white blood cell (WBC) differential - 06/24/16 05:59 Blood leukocytes automated count (number/volume) 7.4 10*3/uL 4.3-11.0 Blood erythrocytes automated count (number/volume) 3.44 10*6/uL 4.35-5.85 Venous blood hemoglobin measurement (mass/volume) 10.2 g/dL 11.5-16.0 Blood hematocrit (volume fraction) 32 % 35-52 Automated erythrocyte mean corpuscular volume 92 [foz_us] 80-99 Automated erythrocyte mean corpuscular hemoglobin (mass per erythrocyte) 30 pg 25-34 Automated erythrocyte mean corpuscular hemoglobin concentration measurement ( mass/volume) 32 g/dL 32-36 Automated erythrocyte distribution width ratio 13.8 % 10.0-14.5 Automated blood platelet count (count/volume) 144 10*3/uL 130-400 Automated blood platelet mean volume measurement 11.4 [foz_us] 7.4-10.4 Automated blood neutrophils/100 leukocytes 64 % 42-75 Automated blood lymphocytes/100 leukocytes 20 % 12-44 Blood monocytes/100 leukocytes 15 % 0-12 Automated blood eosinophils/100 leukocytes 1 % 0-10 Automated blood basophils/100 leukocytes 0 % 0-10 Blood neutrophils automated count (number/volume) 4.7 10*3 1.8-7.8 Blood lymphocytes automated count (number/volume) 1.5 10*3 1.0-4.0 Blood monocytes automated count (number/volume) 1.1 10*3 0.0-1.0 Automated eosinophil count 0.1 10*3/uL 0.0-0.3 Automated blood basophil count (count/volume) 0.0 10*3/uL 0.0-0.1 Comprehensive metabolic panel - 06/24/16 05:59 Serum or plasma sodium measurement (moles/volume) 141 mmol/L 135-145 Serum or plasma potassium measurement (moles/volume) 3.9 mmol/L 3.6-5.0 Serum or plasma chloride measurement (moles/volume) 112 mmol/L 98-107 Carbon dioxide 20 mmol/L 21-32 Serum or plasma anion gap determination (moles/volume) 9 mmol/L 5-14 Serum or plasma urea nitrogen measurement (mass/volume) 34 mg/dL 7-18 Serum or plasma creatinine measurement (mass/volume) 1.11 mg/dL 0.60-1.30 Serum or plasma urea nitrogen/creatinine mass ratio 31 NRG Serum or plasma creatinine measurement with calculation of estimated glomerular filtration rate 48 NRG Serum or plasma glucose measurement (mass/volume) 76 mg/dL 70-105 Serum or plasma calcium measurement (mass/volume) 8.4 mg/dL 8.5-10.1 Serum or plasma total bilirubin measurement (mass/volume) 0.2 mg/dL 0.1-1.0 Serum or plasma alkaline phosphatase measurement (enzymatic activity/volume) 56 U/L 40-136 Serum or plasma aspartate aminotransferase measurement (enzymatic activity/ volume) 29 U/L 5-34 Serum or plasma alanine aminotransferase measurement (enzymatic activity/volume ) 27 U/L 0-55 Serum or plasma protein measurement (mass/volume) 5.9 g/dL 6.4-8.2 Serum or plasma albumin measurement (mass/volume) 3.3 g/dL 3.2-4.5 Hemoglobin A1c - 06/24/16 05:59 Hemoglobin A1c 5.8 % 4.5-6.2 Capillary blood glucose measurement by glucometer (mass/volume) - 06/24/16 06: 10 Capillary blood glucose measurement by glucometer (mass/volume) 76 mg/dL 70-110 Capillary blood glucose measurement by glucometer (mass/volume) - 06/24/16 11: 28 Capillary blood glucose measurement by glucometer (mass/volume) 160 mg/dL 70-110 Capillary blood glucose measurement by glucometer (mass/volume) - 06/24/16 15: 49 Capillary blood glucose measurement by glucometer (mass/volume) 150 mg/dL 70-110 Serum iron and total iron binding capacity panel - 06/24/16 18:53 Serum or plasma iron measurement (mass/volume) 11 % 35- 180 Total iron binding capacity and transferrin saturation measurement 5 % 15-50 Iron binding capacity [mass/volume] in serum or plasma 240 % 280-380 UIBC (unsaturated iron binding capacity) 229 % 55-450 Serum or plasma ferritin measurement (mass/volume) 196.0 % 15.0-150.0 Capillary blood glucose measurement by glucometer (mass/volume) - 06/24/16 20: 22 Capillary blood glucose measurement by glucometer (mass/volume) 182 mg/dL 70-110 Whole blood basic metabolic panel - 06/25/16 05:30 Serum or plasma sodium measurement (moles/volume) 142 mmol/L 135-145 Serum or plasma potassium measurement (moles/volume) 3.6 mmol/L 3.6-5.0 Serum or plasma chloride measurement (moles/volume) 110 mmol/L 98-107 Carbon dioxide 23 mmol/L 21-32 Serum or plasma anion gap determination (moles/volume) 9 mmol/L 5-14 Serum or plasma urea nitrogen measurement (mass/volume) 22 mg/dL 7-18 Serum or plasma creatinine measurement (mass/volume) 0.96 mg/dL 0.60-1.30 Serum or plasma urea nitrogen/creatinine mass ratio 23 NRG Serum or plasma creatinine measurement with calculation of estimated glomerular filtration rate 56 NRG Serum or plasma glucose measurement (mass/volume) 80 mg/dL 70-105 Serum or plasma calcium measurement (mass/volume) 8.8 mg/dL 8.5-10.1 Complete blood count (CBC) with automated white blood cell (WBC) differential - 06/25/16 05:30 Blood leukocytes automated count (number/volume) 7.6 10*3/uL 4.3-11.0 Blood erythrocytes automated count (number/volume) 3.36 10*6/uL 4.35-5.85 Venous blood hemoglobin measurement (mass/volume) 9.9 g/dL 11.5-16.0 Blood hematocrit (volume fraction) 31 % 35-52 Automated erythrocyte mean corpuscular volume 92 [foz_us] 80-99 Automated erythrocyte mean corpuscular hemoglobin (mass per erythrocyte) 30 pg 25-34 Automated erythrocyte mean corpuscular hemoglobin concentration measurement ( mass/volume) 32 g/dL 32-36 Automated erythrocyte distribution width ratio 13.5 % 10.0-14.5 Automated blood platelet count (count/volume) 170 10*3/uL 130-400 Automated blood platelet mean volume measurement 11.4 [foz_us] 7.4-10.4 Automated blood neutrophils/100 leukocytes 64 % 42-75 Automated blood lymphocytes/100 leukocytes 24 % 12-44 Blood monocytes/100 leukocytes 12 % 0-12 Automated blood eosinophils/100 leukocytes 1 % 0-10 Automated blood basophils/100 leukocytes 0 % 0-10 Blood neutrophils automated count (number/volume) 4.8 10*3 1.8-7.8 Blood lymphocytes automated count (number/volume) 1.8 10*3 1.0-4.0 Blood monocytes automated count (number/volume) 0.9 10*3 0.0-1.0 Automated eosinophil count 0.1 10*3/uL 0.0-0.3 Automated blood basophil count (count/volume) 0.0 10*3/uL 0.0-0.1 Capillary blood glucose measurement by glucometer (mass/volume) - 06/25/16 05: 37 Capillary blood glucose measurement by glucometer (mass/volume) 84 mg/dL 70-110 Capillary blood glucose measurement by glucometer (mass/volume) - 06/25/16 11: 00 Capillary blood glucose measurement by glucometer (mass/volume) 170 mg/dL 70-110 CMP - 03/25/17 14:36 GLUCOSE 223 mg/dL 65-99 UREA NITROGEN (BUN) 36 mg/dL 7-25 CREATININE 1.31 mg/dL 0.60-0.93 eGFR NON-AFR. BELIZEAN 39 mL/min/1.73m2 > OR=60 eGFR 45 mL/min/1.73m2 > OR=60 BUN/CREATININE RATIO 27 (calc) 6-22 SODIUM 137 mmol/L 135-146 POTASSIUM 5.3 mmol/L 3.5-5.3 CHLORIDE 102 mmol/L 98-110 CARBON DIOXIDE 25 mmol/L 20-31 CALCIUM 9.7 mg/dL 8.6-10.4 PROTEIN, TOTAL 7.0 g/dL 6.1-8.1 ALBUMIN 4.1 g/dL 3.6-5.1 GLOBULIN 2.9 g/dL (calc) 1.9-3.7 ALBUMIN/GLOBULIN RATIO 1.4 (calc) 1.0-2.5 BILIRUBIN, TOTAL 0.3 mg/dL 0.2-1.2 ALKALINE PHOSPHATASE 85 U/L 33-130 AST 16 U/L 10-35 ALT 14 U/L 6-29 Complete blood count (CBC) with automated white blood cell (WBC) differential - 04/22/17 02:44 Blood leukocytes automated count (number/volume) 12.2 10*3/uL 4.3-11.0 Blood erythrocytes automated count (number/volume) 3.90 10*6/uL 4.35-5.85 Venous blood hemoglobin measurement (mass/volume) 11.4 g/dL 11.5-16.0 Blood hematocrit (volume fraction) 34 % 35-52 Automated erythrocyte mean corpuscular volume 87 [foz_us] 80-99 Automated erythrocyte mean corpuscular hemoglobin (mass per erythrocyte) 29 pg 25-34 Automated erythrocyte mean corpuscular hemoglobin concentration measurement ( mass/volume) 34 g/dL 32-36 Automated erythrocyte distribution width ratio 13.9 % 10.0-14.5 Automated blood platelet count (count/volume) 239 10*3/uL 130-400 Automated blood platelet mean volume measurement 11.7 [foz_us] 7.4-10.4 Automated blood neutrophils/100 leukocytes 78 % 42-75 Automated blood lymphocytes/100 leukocytes 12 % 12-44 Blood monocytes/100 leukocytes 10 % 0-12 Automated blood eosinophils/100 leukocytes 0 % 0-10 Automated blood basophils/100 leukocytes 0 % 0-10 Blood neutrophils automated count (number/volume) 9.5 10*3 1.8-7.8 Blood lymphocytes automated count (number/volume) 1.4 10*3 1.0-4.0 Blood monocytes automated count (number/volume) 1.2 10*3 0.0-1.0 Automated eosinophil count 0.0 10*3/uL 0.0-0.3 Automated blood basophil count (count/volume) 0.0 10*3/uL 0.0-0.1 Comprehensive metabolic panel - 04/22/17 02:44 Serum or plasma sodium measurement (moles/volume) 133 mmol/L 135-145 Serum or plasma potassium measurement (moles/volume) 4.7 mmol/L 3.6-5.0 Serum or plasma chloride measurement (moles/volume) 101 mmol/L 98-107 Carbon dioxide 19 mmol/L 21-32 Serum or plasma anion gap determination (moles/volume) 13 mmol/L 5-14 Serum or plasma urea nitrogen measurement (mass/volume) 48 mg/dL 7-18 Serum or plasma creatinine measurement (mass/volume) 1.45 mg/dL 0.60-1.30 Serum or plasma urea nitrogen/creatinine mass ratio 33 NRG Serum or plasma creatinine measurement with calculation of estimated glomerular filtration rate 35 NRG Serum or plasma glucose measurement (mass/volume) 308 mg/dL 70-105 Serum or plasma calcium measurement (mass/volume) 9.6 mg/dL 8.5-10.1 Serum or plasma total bilirubin measurement (mass/volume) 0.5 mg/dL 0.1-1.0 Serum or plasma alkaline phosphatase measurement (enzymatic activity/volume) 143 U/L 40-136 Serum or plasma aspartate aminotransferase measurement (enzymatic activity/ volume) 32 U/L 5-34 Serum or plasma alanine aminotransferase measurement (enzymatic activity/volume ) 39 U/L 0-55 Serum or plasma protein measurement (mass/volume) 7.4 g/dL 6.4-8.2 Serum or plasma albumin measurement (mass/volume) 3.7 g/dL 3.2-4.5 Serum or plasma creatine kinase measurement (enzymatic activity/volume) - 04/22 02:44 Serum or plasma creatine kinase measurement (enzymatic activity/volume) 116 U/L 29-168 Serum or plasma creatine kinase MB measurement (enzymatic activity/volume) - 02:44 Serum or plasma creatine kinase MB measurement (enzymatic activity/volume) 2.2 ng/mL <6.6 Serum or plasma troponin i.cardiac measurement (mass/volume) - 04/22/17 02:44 Serum or plasma troponin i.cardiac measurement (mass/volume) 14.83 ng/mL <0.30 PT panel in platelet poor plasma by coagulation assay - 04/22/17 02:44 Prothrombin time (PT) in platelet poor plasma by coagulation assay 13.1 s 12.2-14.7 INR in platelet poor plasma or blood by coagulation assay 1.0 0.8-1.4 Activated partial thromboplastin time (aPTT) in platelet poor plasma bycoagulation assay - 04/22/17 02:44 Activated partial thromboplastin time (aPTT) in platelet poor plasma bycoagulation assay 30 s 24-35 Serum or plasma amylase measurement (enzymatic activity/volume) - 04/22/17 02: 44 Serum or plasma amylase measurement (enzymatic activity/volume) 57 U /L 25-125 Serum or plasma lithium measurement (moles/volume) - 04/22/17 02:44 BNP level 1202.7 pg/mL <100.0 Lipase - 04/22/17 02:44 Lipase 84 U/L 8-78 Complete blood count (CBC) with automated white blood cell (WBC) differential - 07/31/17 17:01 Blood leukocytes automated count (number/volume) 17.0 10*3/uL 4.3-11.0 Blood erythrocytes automated count (number/volume) 3.87 10*6/uL 4.35-5.85 Venous blood hemoglobin measurement (mass/volume) 11.4 g/dL 11.5-16.0 Blood hematocrit (volume fraction) 35 % 35-52 Automated erythrocyte mean corpuscular volume 91 [foz_us] 80-99 Automated erythrocyte mean corpuscular hemoglobin (mass per erythrocyte) 30 pg 25-34 Automated erythrocyte mean corpuscular hemoglobin concentration measurement ( mass/volume) 32 g/dL 32-36 Automated erythrocyte distribution width ratio 14.9 % 10.0-14.5 Automated blood platelet count (count/volume) 321 10*3/uL 130-400 Automated blood platelet mean volume measurement 11.5 [foz_us] 7.4-10.4 Automated blood neutrophils/100 leukocytes 89 % 42-75 Automated blood lymphocytes/100 leukocytes 10 % 12-44 Blood monocytes/100 leukocytes 1 % 0-12 Automated blood eosinophils/100 leukocytes 0 % 0-10 Automated blood basophils/100 leukocytes 0 % 0-10 Blood neutrophils automated count (number/volume) 15.1 10*3 1.8-7.8 Blood lymphocytes automated count (number/volume) 1.7 10*3 1.0-4.0 Blood monocytes automated count (number/volume) 0.2 10*3 0.0-1.0 Automated eosinophil count 0.0 10*3/uL 0.0-0.3 Automated blood basophil count (count/volume) 0.0 10*3/uL 0.0-0.1 PT panel in platelet poor plasma by coagulation assay - 07/31/17 17:01 Prothrombin time (PT) in platelet poor plasma by coagulation assay 14.5 s 12.2-14.7 INR in platelet poor plasma or blood by coagulation assay 1.1 0.8-1.4 Activated partial thromboplastin time (aPTT) in platelet poor plasma bycoagulation assay - 07/31/17 17:01 Activated partial thromboplastin time (aPTT) in platelet poor plasma bycoagulation assay 27 s 24-35 Fibrin D-dimer FEU measurement in platelet poor plasma (mass/volume) - 17:01 Fibrin D-dimer FEU measurement in platelet poor plasma (mass/volume) 1.24 ug/mL 0.00-0.49 Comprehensive metabolic panel - 07/31/17 17:01 Serum or plasma sodium measurement (moles/volume) 140 mmol/L 135-145 Serum or plasma potassium measurement (moles/volume) 5.0 mmol/L 3.6-5.0 Serum or plasma chloride measurement (moles/volume) 105 mmol/L 98-107 Carbon dioxide 23 mmol/L 21-32 Serum or plasma anion gap determination (moles/volume) 12 mmol/L 5-14 Serum or plasma urea nitrogen measurement (mass/volume) 47 mg/dL 7-18 Serum or plasma creatinine measurement (mass/volume) 1.36 mg/dL 0.60-1.30 Serum or plasma urea nitrogen/creatinine mass ratio 35 NRG Serum or plasma creatinine measurement with calculation of estimated glomerular filtration rate 38 NRG Serum or plasma glucose measurement (mass/volume) 300 mg/dL 70-105 Serum or plasma calcium measurement (mass/volume) 10.0 mg/dL 8.5-10.1 Serum or plasma total bilirubin measurement (mass/volume) 0.4 mg/dL 0.1-1.0 Serum or plasma alkaline phosphatase measurement (enzymatic activity/volume) 146 U/L 40-136 Serum or plasma aspartate aminotransferase measurement (enzymatic activity/ volume) 48 U/L 5-34 Serum or plasma alanine aminotransferase measurement (enzymatic activity/volume ) 67 U/L 0-55 Serum or plasma protein measurement (mass/volume) 7.7 g/dL 6.4-8.2 Serum or plasma albumin measurement (mass/volume) 4.0 g/dL 3.2-4.5 Magnesium - 07/31/17 17:01 Magnesium 2.4 mg/dL 1.8-2.4 Serum or plasma troponin i.cardiac measurement (mass/volume) - 07/31/17 17:01 Serum or plasma troponin i.cardiac measurement (mass/volume) < ng/ mL <0.30 Myoglobin, serum - 07/31/17 17:01 Myoglobin, serum 86.6 ng/mL 10.0-92.0 Lipase - 07/31/17 17:01 Lipase 14 U/L 8-78 Serum or plasma lithium measurement (moles/volume) - 07/31/17 17:01 BNP level 1048.3 pg/mL <100.0 Blood manual differential performed detection - 07/31/17 17:01 Blood monocytes/100 leukocytes 3 % NRG Manual blood segmented neutrophils/100 leukocytes 90 % NRG Manual blood lymphocytes/100 leukocytes 7 % NRG Blood erythrocyte morphology finding identification NORMAL NRG Arterial blood gas measurement - 07/31/17 17:15 Blood pCO2 70 mm[Hg] 35-45 Blood pO2 77 mm[Hg] 79-93 Arterial blood bicarbonate measurement (moles/volume) 29 mmol/L 23-27 Arterial blood base excess by calculation 1.5 mmol/L -2.5 -2.5 Arterial blood oxygen saturation measurement 92 % 94-100 * Inhaled oxygen flow rate 10L NRG Arterial blood pH measurement with patient temperature correction 7.23 7.37-7.43 Arterial blood carbon dioxide, total measurement (moles/volume) 31.2 mmol/L 21.0-31.0 Body site LT RAD NRG Assessment of wrist artery patency prior to arterial puncture YES- POS NRG Setting of ventilation mode NO NRG Measurement of body temperature 95.3 NRG Encounters ACCT No. Visit Date/Time Discharge Status Pt. Type Provider Facility Loc./Unit Complaint [id number] 05/22/2014 13:34:00 05/22/2014 23:59:59 CLS Outpatient MERLIN OLMOS MD [id number] 05/22/2014 13:34:00 05/22/2014 23:59:59 CLS Outpatient MERLIN OLMOS MD [id number] 02/19/2014 09:16:00 02/19/2014 23:59:59 CLS Outpatient MERLIN OLMOS MD [id number] 11/09/2013 13:54:00 11/09/2013 23:59:59 CLS Outpatient MERLIN OLMOS MD [id number] 11/09/2013 13:54:00 11/09/2013 23:59:59 CLS Outpatient MERLIN OLMOS MD [id number] 07/21/2012 15:44:00 07/21/2012 23:59:59 CLS Outpatient MERLIN OLOMS MD [id number] 05/11/2011 15:19:00 05/11/2011 23:59:59 CLS Outpatient MERLIN OLMOS MD [id number] 05/11/2011 15:19:00 05/11/2011 23:59:59 CLS Outpatient [id number] 07/21/2012 15:44:00 Document Registration [id number] 03/25/2017 14:20:00 03/25/2017 23:59:59 CLS Outpatient MERLIN OLMOS MD [facility] [id number] 03/25/2017 14:20:00 Document Registration [id number] 09/05/2014 17:43:35 ACT Document Registration [id number] 04/22/2017 02:39:00 04/22/2017 06:06:00 DIS Inpatient SHAMIR VANCE FACC, DARSHANA PAYAN CCDS [facility] ICU CHEST PAIN [id number] 06/22/2016 23:13:00 06/23/2016 13:00:00 DIS Inpatient NARA SEGOVIA MD [facility] 4TH UTI,DIARRHEA,DEHYDRATION [id number] 09/05/2014 17:43:00 09/05/2014 19:25:00 DIS Emergency LEONOR JOSUE MD [facility] ER R FINGER PAIN [id number] 11/28/2013 22:05:00 11/28/2013 23:17:00 DIS Emergency RAS POLLARD DO [facility] ER FALL-RT SIDE, HIP KNEE PAIN [id number] 08/07/2013 11:40:00 08/07/2013 14:24:00 DIS Emergency TOLU JOSHI DO [facility] ER GLUCOSE PROBLEMS [id number] 07/31/2017 17:10:00 Document Registration
[2017-07-31 21:24] LABS: BILIRUBIN,URINE NEGATIVE (NEGATIVE); CLARITY,URINE CLEAR; COLOR,URINE YELLOW; GLUCOSE, URINE (UA) NEGATIVE (NEGATIVE); KETONES,URINE NEGATIVE (NEGATIVE); LEUKOCYTE ESTERASE ,URINE 2+ (NEGATIVE); NITRITE,URINE NEGATIVE (NEGATIVE); PH,URINE 5 (5-9); PROTEIN,URINE NEGATIVE (NEGATIVE); UROBILINOGEN,URINE NORMAL (NORMAL)
[2017-07-31] MEDS ORDERED: NITROGLYCERIN 0.4 MG SL TABS BTL 25'S SL PRN (21:30)
[2017-07-31 21:36] LABS: BACTERIA,URINE LARGE /HPF
[2017-07-31] MEDS: CEFEPIME 2 GM/NS 50 ML IVPB IV SCH ×2 (21:54)
[2017-07-31] MEDS: AZITHROMYCIN 500 MG/NS 250 ML IVPB IV SCH ×2 (21:54)
[2017-07-31] MEDS ORDERED: RT-ALBUTEROL/IPRATROPIUM 3 ML (DUONEB) VIAL INH PRN (22:15)
[2017-07-31 22:24] LABS: ABG BASE EXCESS 1.5 MMOL/L (-2.5-2.5); ABG OXYGEN SATURATION 97 % (94-100); ABG PCO2 47 MMHG (35-45); ABG PH 7.36 (7.37-7.43); ABG PO2 88 MMHG (79-93); ABG TCO2 28.2 MMOL/L (21.0-31.0)
[2017-07-31 22:25] LABS: ALLENS TEST YES-POS; INSPIRED O2 30%; PATIENT TEMP 96.1; VENTILATOR NO
[2017-07-31] MEDS ORDERED: inSUlin DETERMIR 1 UNIT/0.01 ML (LEVEMIR) CHARGE PER UNIT SQ ONE (22:42)
[2017-08-01] VITALS (24 sets, daily range): BP systolic 79–131; BP diastolic 46–74
[2017-08-01] MEDS: RT-ALBUTEROL/IPRATROPIUM 3 ML (DUONEB) VIAL INH SCH ×6 (01:18→22:46)
[2017-08-01 03:39] LABS: BASOPHILS % (AUTO) 0 % (0-10); EOSINOPHILS % (AUTO) 0 % (0-10); HEMATOCRIT 33 % (35-52); HEMOGLOBIN 10.2 G/DL (11.5-16.0); LYMPHOCYTES # (AUTO) 1.2 X 10^3 (1.0-4.0); LYMPHOCYTES % (AUTO) 10 % (12-44); MEAN CORPUSCULAR HEMOGLOBIN 28 PG (25-34); MEAN CORPUSCULAR HGB CONC 31 G/DL (32-36); MEAN CORPUSCULAR VOLUME 92 FL (80-99); MEAN PLATELET VOLUME 11.4 FL (7.4-10.4); MONOCYTES % (AUTO) 8 % (0-12); NEUTROPHILS # (AUTO) 10.4 X 10^3 (1.8-7.8); NEUTROPHILS % (AUTO) 82 % (42-75); PLATELET COUNT 224 10^3/uL (130-400); RED BLOOD COUNT 3.59 10^6/uL (4.35-5.85); RED CELL DISTRIBUTION WIDTH 14.9 % (10.0-14.5); WHITE BLOOD COUNT 12.6 10^3/uL (4.3-11.0)
[2017-08-01 04:01] LABS: CALCIUM 9.5 MG/DL (8.5-10.1); CREATININE SERUM 1.26 MG/DL (0.60-1.30); MAGNESIUM 2.5 MG/DL (1.8-2.4); PHOSPHORUS 4.2 MG/DL (2.3-4.7); POTASSIUM 4.9 MMOL/L (3.6-5.0)
[2017-08-01 04:03] LABS: CHOLESTEROL 119 MG/DL (< 200); HDL CHOLESTEROL 47 MG/DL (40-60); TRIGLYCERIDES 80 MG/DL (<150); VLDL CHOLESTEROL 16 MG/DL (5-40)
[2017-08-01] MEDS: CEFEPIME 2 GM/NS 50 ML IVPB IV SCH ×2 (05:15)
[2017-08-01 05:34] LABS: ABG BASE EXCESS 2.3 MMOL/L (-2.5-2.5); ABG OXYGEN SATURATION 95 % (94-100); ABG PCO2 45 MMHG (35-45); ABG PH 7.39 (7.37-7.43); ABG PO2 73 MMHG (79-93); ABG TCO2 28.4 MMOL/L (21.0-31.0)
[2017-08-01 05:37] LABS: ALLENS TEST YES-POS; INSPIRED O2 25%; PATIENT TEMP 96.8; VENTILATOR NO
[2017-08-01] MEDS ORDERED: MAGNESIUM 1 GM/100 ML IVPB 100 ML IV SCH (06:00)
[2017-08-01] MEDS ORDERED: KCL 20 MEQ TAB (K-DUR) PO SCH (06:00)
[2017-08-01] MEDS ORDERED: POTASSIUM CL 10MEQ/50ML IVPB 50 ML IV SCH (06:00)
[2017-08-01] MEDS: fentaNYL INJECTION 100 MCG/2 ML AMP IV PRN ×2 (07:27→12:29)
[2017-08-01] MEDS: inSUlin ASPART (NovoLOG) 1 UNIT/0.01 ML (CHARGE PER UNIT) SC SCH ×7 (07:27→20:45)
--- NOTE | 2017-08-01 08:56 | Diagnostic Imaging Report ---
INDICATION: Hypoxia and hypercarbia with respiratory distress. Comparison made with prior examination from 07/31/2017. Findings: There is cardiomegaly There is moderate central pulmonary venous congestion. There is no pleural effusion or pneumothorax. The mediastinum is unremarkable. IMPRESSION: Cardiomegaly and some moderate central pulmonary venous congestion. Dictated by: Dictated on workstation # [id number]
[2017-08-01] MEDS ORDERED: lisINopril 5 MG (PRINIVIL) TABLET PO SCH (09:00)
[2017-08-01] MEDS ORDERED: meTOprolol TARTRATE 25 MG (LOPRESSOR) TABLET PO SCH (09:00)
[2017-08-01] MEDS: ASPIRIN E.C. 81 MG (ECOTRIN) TAB PO SCH (09:03)
[2017-08-01] MEDS ORDERED: CARV3.12 PO (12:04)
[2017-08-01] MEDS ORDERED: PRD20T PO (12:04)
[2017-08-01] MEDS ORDERED: ACET325T38 PO (12:04)
[2017-08-01] MEDS ORDERED: INSU100V5 SQ (12:04)
[2017-08-01] MEDS ORDERED: POLY17PO6 PO (12:04)
[2017-08-01] MEDS ORDERED: DOCU-143 PO (12:04)
[2017-08-01] MEDS ORDERED: ERGO50006 PO (12:04)
[2017-08-01] MEDS ORDERED: HYDR-3870 PO (12:04)
[2017-08-01] MEDS ORDERED: GABA100C PO (12:04)
[2017-08-01] MEDS ORDERED: CLOP75TA69 PO (12:04)
[2017-08-01] MEDS ORDERED: PROT1PAC2 PO (12:04)
[2017-08-01] MEDS ORDERED: FURO-124 PO (12:04)
[2017-08-01] MEDS ORDERED: ASPI-586 PO (12:04)
[2017-08-01] MEDS ORDERED: FUROSEMIDE 20 MG (LASIX) TAB PO NR (12:15)
--- NOTE | 2017-08-01 13:09 | History & Physicial (CHS) ---
HPI History of Present Illness: 77 yo F with recent hospitalization in Apr for acute IA s/p multiple stents. Patient has then been at [facility] since. Prior to this hospitalization she states that she started to feel bad about 4-5 days ago. Yesterday prior to admission the staff at [facility] noticed that she was short of breath and did an oxygen saturation on her and she was in the 70s at rest. They placed the patient on oxygen and sent her to the ER. When she arrived in the ER she required Bipap to maintain oxygen saturations and was given a dose of lasix. Patient states that this AM she feels much better and looks comfortable on 2L NC. She denies any fever or chills. + shortness of breath. States that she has occasional chest pain in the center of her chest. She denies any chest pain since arriving. + Non productive cough. Source: patient, family (Daughter), old records Exam Limitations: no limitations Date seen by provider: Aug 01, 2017 Time Seen by Provider: 13:35 Attending Physician Nara Tom MD PCP Jorge Pearson MD Consult Date of Admission Jul 31, 2017 at 18:45 Home Medications Home Medications Reviewed patient Home Medication Reconciliation performed by pharmacy medication reconciliations service technician copier and/or nursing. Patients Allergies have been reviewed. Allergies Coded Allergies: NKANo Known Allergies (Unverified Allergy, Unknown, 08/29/05) [id number] Hx Patient Social History Living Status: [facility] Alcohol Use: Denies Use Recreational Drug Use: No Smoking Status: Never a Smoker Recent Foreign Travel: No Contact w/other who traveled: No Recent Hopitalizations: Yes (April 2017) Recent Infectious Disease Expo: No Physical Abuse Screen: No Sexual Abuse: No Past Medical History Insulin Dependent DM HTN CAD s/p stents CKD Family Medical History Significant Family History: No Pertinent Family Hx Review of Systems (CHC) Constitutional: No chills, No dizziness, No fever; weakness EENTM: no symptoms reported; No vision loss, No nose congestion Respiratory: cough; No dyspnea on exertion; orthopnea, short of breath Cardiovascular: chest pain (occasional), edema; No palpitations Gastrointestinal: no symptoms reported; No abdominal pain, No constipation, No diarrhea; loss of appetite; No nausea, No vomiting Genitourinary: no symptoms reported; No dysuria, No frequency, No hematuria : No Musculoskeletal: no symptoms reported; No back pain, No joint pain, No muscle pain Skin: no symptoms reported; No lesions, No rash Psychiatric/Neurological: Anxiety; Denies Headache, Denies Numbness; Weakness Reviewed Test Results Reviewed Test Results Lab Laboratory Tests Test 07/31/17 22:20 07/31/17 23:07 08/01/17 03:26 08/01/17 05:25 Range/Units Blood Gas Puncture Site RIGHT RADIAL RIGHT RADIAL Blood Gas Patient Temperature 96.1 96.8 Arterial Blood pH 7.36 L 7.39 7.37-7.43 Arterial Blood Partial Pressure CO2 47 H 45 35-45 MMHG Arterial Blood Partial Pressure O2 88 73 L 79-93 MMHG Arterial Blood HCO3 27 27 23-27 MMOL/L Arterial Blood Total CO2 28.2 28.4 21.0-31.0 MMOL/L Arterial Blood Oxygen Saturation 97 95 94-100 % Arterial Blood Base Excess 1.5 2.3 -2.5-2.5 MMOL/L Nicho Test YES-POS YES-POS Blood Gas Ventilator Setting NO NO Blood Gas Inspired Oxygen 30% 25% Troponin I < 0.30 <0.30 NG/ML White Blood Count 12.6 H 4.3-11.0 10^3/uL Red Blood Count 3.59 L 4.35-5.85 10^6/uL Hemoglobin 10.2 L 11.5-16.0 G/DL Hematocrit 33 L 35-52 % Mean Corpuscular Volume 92 80-99 FL Mean Corpuscular Hemoglobin 28 25-34 PG Mean Corpuscular Hemoglobin Concent 31 L 32-36 G/DL Red Cell Distribution Width 14.9 H 10.0-14.5 % Platelet Count 224 130-400 10^3/uL Mean Platelet Volume 11.4 H 7.4-10.4 FL Neutrophils (%) (Auto) 82 H 42-75 % Lymphocytes (%) (Auto) 10 L 12-44 % Monocytes (%) (Auto) 8 0-12 % Eosinophils (%) (Auto) 0 0-10 % Basophils (%) (Auto) 0 0-10 % Neutrophils # (Auto) 10.4 H 1.8-7.8 X 10^3 Lymphocytes # (Auto) 1.2 1.0-4.0 X 10^3 Monocytes # (Auto) 1.0 0.0-1.0 X 10^3 Eosinophils # (Auto) 0.0 0.0-0.3 10^3/uL Basophils # (Auto) 0.0 0.0-0.1 10^3/uL Sodium Level 141 135-145 MMOL/L Potassium Level 4.9 3.6-5.0 MMOL/L Chloride Level 106 98-107 MMOL/L Carbon Dioxide Level 23 21-32 MMOL/L Anion Gap 12 5-14 MMOL/L Blood Urea Nitrogen 46 H 7-18 MG/DL Creatinine 1.26 0.60-1.30 MG/DL Estimat Glomerular Filtration Rate 41 BUN/Creatinine Ratio 37 Glucose Level 254 H 70-105 MG/DL Calcium Level 9.5 8.5-10.1 MG/DL Phosphorus Level 4.2 2.3-4.7 MG/DL Magnesium Level 2.5 H 1.8-2.4 MG/DL Triglycerides Level 80 <150 MG/DL Cholesterol Level 119 < 200 MG/DL LDL Cholesterol Direct 50 1-129 MG/DL VLDL Cholesterol 16 5-40 MG/DL HDL Cholesterol 47 40-60 MG/DL Test 08/01/17 09:01 08/01/17 12:31 08/01/17 17:43 08/01/17 20:36 Range/Units Glucometer 175 H 180 H 89 161 H 70-110 MG/DL Radiology Date of Exam: 07/31/17 CHEST 1 VIEW, AP/PA ONLY INDICATION: Chest pain. Shortness of breath. COMPARISON: 04/22/2017. FINDINGS: There has been increase in cardiac size. There has been development of pulmonary edema with bilateral perihilar infiltrates as well as bilateral lower lobe alveolar infiltrates. There are small bilateral pleural effusions. IMPRESSION: 1. Findings are consistent with development of congestive failure since previous exam. Cannot exclude superimposed pneumonia in the lower lobes bilaterally. Date of Exam: 07/31/17 CT ANGIO CHEST W PROCEDURE: CT angiography of the chest with contrast. TECHNIQUE: Multiple contiguous axial images were obtained through the chest after uneventful bolus administration of intravenous contrast. Reconstructed CTA MIP acquisitions were also performed. INDICATION: Chest pain with shortness of breath. History of previous DVT and PE. CT angiography was performed due to acute shortness of breath and high risk and in spite of mildly decreased GFR function. This was discussed with the physician. FINDINGS: There are large bilateral pleural effusions. There is bilateral lower lobe atelectasis. Findings are consistent with diffuse pulmonary edema with diffuse interstitial infiltrate. There is good opacification of aorta and pulmonary arteries. There is no evidence of aortic aneurysm or dissection. Pulmonary arteries are well opacified. There are no filling defects to indicate pulmonary emboli. There is cardiomegaly with dilated left ventricle. No mediastinal or hilar adenopathy of pathologic size. IMPRESSION: 1. Findings are consistent with congestive failure with large bilateral pleural effusions with bibasilar atelectasis and diffuse interstitial infiltrates as well as cardiomegaly. 2. No findings to suggest pulmonary emboli. Physical Exam-([facility]) Physical Exam Vital Signs VS - Last 72 Hours, by Label 07/31/17 07/31/17 07/31/17 07/31/17 17:00 17:00 17:00 17:44 Temp 95.3 Pulse 104 98 Resp 18 29 B/P (MAP) 156/96 (116) Pulse Ox 94 93 97 O2 Delivery OxyMask OxyMask O2 Flow Rate 10.00 10.0 07/31/17 07/31/17 07/31/17 07/31/17 18:16 20:11 20:25 20:30 Pulse 101 95 92 Resp 19 22 19 B/P (MAP) 141/86 Pulse Ox 99 99 98 O2 Delivery NIV Bilevel NIV Bilevel O2 Flow Rate 55.00 45.00 FiO2 40 18 07/31/17 07/31/17 07/31/17 20:34 20:35 20:45 21:00 Temp 96.1 Pulse 98 97 99 98 Resp 16 26 20 B/P (MAP) 142/91 (108) 142/91 (108) 145/84 (104) Pulse Ox 99 99 99 O2 Delivery NIV Bilevel NIV Bilevel NIV Bilevel O2 Flow Rate 40.00 40.00 40.00 07/31/17 07/31/1718 07/31/17 21:10 21:10 21:10 21:15 Pulse 97 97 97 101 Resp 21 27 17 B/P (MAP) 124/75 (91) Pulse Ox 100 98 100 97 O2 Delivery NIV Bilevel NIV Bilevel O2 Flow Rate 40.00 40.00 30.00 FiO2 40 18 18 18 07/31/17 21:30 21:45 22:00 22:15 Pulse 93 91 89 86 Resp 13 13 13 16 B/P (MAP) 117/79 (92) 138/84 (102) 117/79 (92) 121/79 (93) Pulse Ox 100 98 100 100 O2 Delivery NIV Bilevel NIV Bilevel NIV Bilevel NIV Bilevel O2 Flow Rate 30.00 30.00 30.00 30.00 2/18 6/2/18 6/2/18 6/3/18 23:00 23:40 23:41 00:00 Pulse 82 80 79 Resp 14 13 13 B/P (MAP) 101/58 (72) Pulse Ox 100 100 100 98 O2 Delivery NIV Bilevel NIV Bilevel NIV Bilevel O2 Flow Rate 30.00 25.00 30.00 25.00 3/18 08/01/18 6/3/18 6/18 00:00 01:00 01:00 01:18 Temp 97.0 Pulse 80 82 82 81 Resp 13 15 14 B/P (MAP) 111/68 (82) 126/66 (86) Pulse Ox 99 99 98 O2 Delivery NIV Bilevel NIV Bilevel O2 Flow Rate 25.00 25.00 25.00 3/18 6/3/18 6/3/18 6/18 02:00 03:00 03:50 04:00 Pulse 79 86 82 Resp 13 21 15 B/P (MAP) 122/69 (86) 131/74 (93) Pulse Ox 97 99 97 98 O2 Delivery NIV Bilevel NIV Bilevel NIV Bilevel O2 Flow Rate 25.00 25.00 25.00 25.00 3/18 08/01/18 /3/18 08/01/18 04:00 05:00 06:00 06:31 Temp 96.9 Pulse 84 83 81 84 Resp 10 13 14 23 B/P (MAP) 109/64 (79) 99/48 (65) 103/54 (70) Pulse Ox 100 100 98 98 O2 Delivery NIV Bilevel NIV Bilevel NIV Bilevel O2 Flow Rate 25.00 25.00 25.00 25.00 3/18 63/18 6/3/18 63/18 07:00 07:00 08:08 08:45 Pulse 85 84 86 Resp 14 17 B/P (MAP) 104/53 (70) Pulse Ox 97 100 100 O2 Delivery Nasal Cannula NIV Bilevel O2 Flow Rate 2.00 25.00 25.00 08/01/17 08/01/17 08/01/17 08/01/17 08:53 09:00 10:00 10:37 Temp 97.9 Pulse 90 83 Resp 19 21 B/P (MAP) 110/62 (78) 101/56 (71) Pulse Ox 100 95 99 O2 Delivery Nasal Cannula Nasal Cannula Nasal Cannula O2 Flow Rate 2.00 2.00 1.00 08/01/17 08/01/17 08/01/17 08/01/17 11:00 11:30 12:00 13:00 Temp 97.8 Pulse 79 82 78 Resp 28 22 14 B/P (MAP) 95/53 (67) 90/52 (65) 89/50 (63) Pulse Ox 99 95 97 O2 Delivery Nasal Cannula Nasal Cannula Nasal Cannula O2 Flow Rate 2.00 2.00 2.00 08/01/17 08/01/17 08/01/17 08/01/17 13:09 14:00 15:05 16:05 Temp 98.0 Pulse 78 79 82 Resp 20 22 B/P (MAP) 105/56 (72) 96/52 (67) Pulse Ox 94 99 94 O2 Delivery Nasal Cannula Room Air Nasal Cannula O2 Flow Rate 2.00 2.00 08/01/17 08/01/17 08/01/17 08/01/17 18:23 18:23 19:00 19:00 Pulse 83 83 Resp 24 B/P (MAP) 96/54 (68) Pulse Ox 97 96 94 O2 Delivery Nasal Cannula Nasal Cannula Nasal Cannula O2 Flow Rate 2.00 1.00 1.00 08/01/17 08/01/17 08/01/17 20:00 21:00 21:00 Pulse 84 87 Resp 20 22 B/P (MAP) 79/65 (70) 87/54 (65) Pulse Ox 93 94 94 O2 Delivery Nasal Cannula Nasal Cannula Nasal Cannula O2 Flow Rate 1.00 1.00 1.00 Capillary Refill : Less Than 3 Seconds General Appearance: mild distress (conversational dypnea) HEENT: PERRL/EOMI Neck: non-tender, full range of motion, supple Respiratory: chest non-tender, normal breath sounds, accessory muscle use; No crackles, No wheezing Cardiovascular: normal peripheral pulses, regular rate, rhythm, no gallop, no murmur Gastrointestinal: normal bowel sounds, non tender, soft, no organomegaly Back: no CVA tenderness, no vertebral tenderness Extremities: normal range of motion, no calf tenderness, normal capillary refill, pedal edema (3+ bilaterally edema) Neurologic/Psychiatric: perinatal technician II-XII nml as tested, no motor/sensory deficits, alert, normal mood/affect, oriented x 3 Skin: normal color, warm/dry Lymphatic: no adenopathy Assessment/Plan Assessment/Plan Admission Status: Inpatient Order (span 2 midnights) Reason for Inpatient Admission: Requiring supplemental oxygen and IV medications (1) Acute respiratory distress Status: Acute Assessment & Plan: - Patient required Bipap at admission, titrated down to 2L NC - Will transfer out of ICU today - Significant improvement with diuresis (2) Acute on chronic systolic CHF (congestive heart failure) Status: Acute Assessment & Plan: - Restart lasix 20 mg BID, Will continue to monitor Cr closely - D/c anais when transferred out of ICU - Monitor weight - Consult Cardiology (3) 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 Status: Chronic Assessment & Plan: - A1c pending - Accuchecks AC/HS (4) HTN (hypertension) Status: Chronic Assessment & Plan: - Normotensive/Hypotensive today, will continue to monitor with diuresis Qualifiers: Qualified Codes: I10 - Essential (primary) hypertension (5) Normocytic anemia Status: Chronic Assessment & Plan: - Will get iron studies, likely 2/2 chronic disease (6) CKD (chronic kidney disease) Status: Chronic Qualifiers: Qualified Codes: N18.9 - Chronic kidney disease, unspecified (7) CAD (coronary artery disease) Status: Chronic Assessment & Plan: - Restarted Plavix, ASA and Lipitor Qualifiers: Qualified Codes: I25.118 - Atherosclerotic heart disease of [place] coronary artery with other forms of angina pectoris (8) Physical debility Status: Acute Assessment & Plan: - PT ordered, patient uses walker at baseline (9) DVT prophylaxis Status: Acute Assessment & Plan: - Lovenox Clinical Quality Measures AMI/AHF: ASA po Prior to arrival: No DVT/VTE Risk/Contraindication: Risk Factor Score Per Nursin RFS Level Per Nursing on Admit: 4+=Very High NARA TOM MD Aug 01, 2017 13:09
[2017-08-01] MEDS ORDERED: ENOXAPARIN 40 MG/0.4 ML (LOVENOX) SYR SC SCH (13:15)
[2017-08-01] MEDS: ACETAMINOPHEN 500 MG TAB (TYLENOL) PO PRN ×2 (16:18→23:42)
[2017-08-01] MEDS ORDERED: LORazepam 0.5 MG (ATIVAN) TABLET ONE (16:26)
[2017-08-01] MEDS: LORazepam 0.5 MG (ATIVAN) TABLET PO PRN ×2 (16:28→22:57)
[2017-08-01] MEDS ORDERED: FUROSEMIDE 20 MG (LASIX) TAB PO SCH (17:00)
[2017-08-01] MEDS: morphine INJ 10 MG/ML 1ML (SYR OR VIAL) IVP PRN ×4 (19:27→23:07)
[2017-08-01] MEDS: ATORVASTATIN 40 MG (LIPITOR) TABLET PO SCH (20:44)
[2017-08-01] MEDS ORDERED: inSUlin DETERMIR 1 UNIT/0.01 ML (LEVEMIR) CHARGE PER UNIT SQ SCH (21:00)
[2017-08-01] MEDS ORDERED: inSUlin DETERMIR 1 UNIT/0.01 ML (LEVEMIR) CHARGE PER UNIT SQ ONE (21:00)
[2017-08-01] MEDS: AZITHROMYCIN 500 MG/NS 250 ML IVPB IV SCH ×2 (21:35)
[2017-08-01] MEDS: ONDANSETRON 4 MG/2 ML (SDV) Z0FRAN IV PRN (23:42)
[2017-08-02] VITALS (18 sets, daily range): BP systolic 71–109; BP diastolic 31–56
[2017-08-02] MEDS: RT-ALBUTEROL/IPRATROPIUM 3 ML (DUONEB) VIAL INH SCH ×6 (01:09→22:27)
[2017-08-02] MEDS ORDERED: NS IV 500 ML 500 ML ONE (01:29)
[2017-08-02] MEDS: morphine INJ 10 MG/ML 1ML (SYR OR VIAL) IVP PRN ×2 (01:31→20:30)
[2017-08-02] MEDS ORDERED: CEFEPIME 2 GM/NS 50 ML IVPB IV SCH ×2 (05:00)
[2017-08-02] MEDS: inSUlin ASPART (NovoLOG) 1 UNIT/0.01 ML (CHARGE PER UNIT) SC SCH ×7 (06:08→22:39)
[2017-08-02 06:33] LABS: BASOPHILS % (AUTO) 0 % (0-10); EOSINOPHILS # (AUTO) 0.2 10^3/uL (0.0-0.3); EOSINOPHILS % (AUTO) 2 % (0-10); HEMATOCRIT 31 % (35-52); HEMOGLOBIN 9.6 G/DL (11.5-16.0); LYMPHOCYTES # (AUTO) 2.5 X 10^3 (1.0-4.0); LYMPHOCYTES % (AUTO) 24 % (12-44); MEAN CORPUSCULAR HEMOGLOBIN 29 PG (25-34); MEAN CORPUSCULAR HGB CONC 31 G/DL (32-36); MEAN CORPUSCULAR VOLUME 95 FL (80-99); MEAN PLATELET VOLUME 11.4 FL (7.4-10.4); MONOCYTES % (AUTO) 9 % (0-12); NEUTROPHILS # (AUTO) 6.7 X 10^3 (1.8-7.8); NEUTROPHILS % (AUTO) 65 % (42-75); PLATELET COUNT 185 10^3/uL (130-400); RED BLOOD COUNT 3.26 10^6/uL (4.35-5.85); RED CELL DISTRIBUTION WIDTH 15.1 % (10.0-14.5); WHITE BLOOD COUNT 10.4 10^3/uL (4.3-11.0)
[2017-08-02 06:54] LABS: ALBUMIN 3.2 GM/DL (3.2-4.5); BILIRUBIN,TOTAL 0.3 MG/DL (0.1-1.0); CALCIUM 8.8 MG/DL (8.5-10.1); CREATININE SERUM 2.25 MG/DL (0.60-1.30); POTASSIUM 5.6 MMOL/L (3.6-5.0); TOTAL PROTEIN 6.2 GM/DL (6.4-8.2)
[2017-08-02] MEDS: ASPIRIN E.C. 81 MG (ECOTRIN) TAB PO SCH (08:03)
[2017-08-02] MEDS: CLOPIDOGREL 75 MG (PLAVIX) TABLET PO SCH (08:03)
--- NOTE | 2017-08-02 09:33 | Consultation-Cardiology ---
HPI-Cardiology Cardiology Consultation: Date of Consultation 08/02/17 Time Seen by Provider: 09:00 Date of Admission 07/31/17 Attending Physician Shirley Tom MD Admitting Physician Jorge Pearson MD Consulting Physician DARSHANA BARKSDALE MD, MA, FACP, FACC, FSCAI, CCDS HPI: Chief Complaint: CC: Shortness of breath 77 yo woman admitted to Dr Tom for shortness of breath and chest discomfort. Chest discomfort: mild to mod, transthoracic, associated with shortness of breath, continuous for more than 12 hours on the day of presentation, now resolved, dissimilar to the one experienced with ac UT earlier this year, non- radiating, w/o any aggravating or relieving factors. Bilat leg swelling. No palp or syncope. Gen malaise. No fever or chills Review of Systems-Cardiology Review of Systems Constitutional: malaise, tiredness; No weight loss, No weight gain Eyes: No vision change Ears/Nose/Throat: No ear discharge, No nasal drainage, No recent hearing loss Respiratory: As described under HPI Cardiovascular: As described under HPI Gastrointestinal: No constipation, No diarrhea, No nausea, No vomiting Genitourinary: No dysuria, No hematuria : No Musculoskeletal: back pain (chronic), joint pain (chronic) Skin: No rash, No ulcerations Psychiatric/Neurological: No seizure, No focal weakness, No syncope Hematologic: No bleeding abnormalities [id number] Hx Patient Social History Living Status: [facility] Alcohol Use: Denies Use Recreational Drug Use: No Smoking Status: Never a Smoker Recent Foreign Travel: No Recent Infectious Disease Expo: No Physical Abuse Screen: No Sexual Abuse: No Past Medical History PMH As described under Assessment. Family Medical History Family Medical History: Does not report fam h/o early CAD or SCD Allergies and Home Medications Allergies Coded Allergies: NKANo Known Allergies (Unverified Allergy, Unknown, 08/29/05) Home Medications Acetaminophen 325 Mg Tablet, 650 MG PO Q6H PRN for pain, (Reported) Aspirin 81 Mg Tablet.dr, 81 MG PO DAILY, (Reported) Carvedilol 3.125 Mg Tablet, 3.125 MG PO BID, (Reported) Clopidogrel Bisulfate 75 Mg Tablet, 75 MG PO DAILY, (Reported) Docusate Sodium 100 Mg Capsule, 100 MG PO DAILY, (Reported) Ergocalciferol (Vitamin D2) 50,000 Unit Capsule, 50,000 UNIT PO WEEK, (Reported) Furosemide 40 Mg Tablet, 40 MG PO Q48H, (Reported) Gabapentin 100 Mg Capsule, 100 MG PO BID, (Reported) Hydrocodone/Acetaminophen 1 Each Tablet, 1 EACH PO Q6H PRN for PAIN, (Reported) Insulin Aspart 100 Unit/1 Ml Susp, 10 UNITS SQ TIDWM, (Reported) Insulin Determir 1,000 Units/10 Ml Soln, 10 UNITS SQ HS, (Reported) Insulin Determir 1,000 Units/10 Ml Soln, 24 UNITS SQ DAILY, (Reported) Daily before breakfast Polyethylene Glycol 3350 17 Gm Powd.pack, 17 GM PO DAILY PRN, (Reported) Pravastatin Sodium 40 Mg Tablet, 40 MG PO HS, (Reported) Prednisone 20 Mg Tab, 40 MG PO DAILY, (Reported) Patient Home Medication List Home Medication List Reviewed: Yes Physical Exam-Cardiology Physical Exam Vital Signs/I&O 08/01/17 08/01/17 08/01/17 08/01/17 21:30 22:30 22:30 22:46 Pulse 81 80 81 Resp 19 34 20 B/P (MAP) 82/53 (63) Pulse Ox 95 96 95 95 O2 Delivery Nasal Cannula Nasal Cannula Nasal Cannula Nasal Cannula O2 Flow Rate 1.00 1.00 1.00 1.00 08/01/17 08/01/17 08/01/17 08/01/17 22:52 23:00 23:09 23:30 Pulse 83 82 Resp 22 21 B/P (MAP) 88/51 (63) Pulse Ox 94 94 90 O2 Delivery Room Air Room Air Room Air 08/02/17 08/02/17 08/02/17 08/02/17 00:00 00:30 01:00 01:09 Pulse 78 72 73 Resp 16 17 16 B/P (MAP) 76/45 (55) 74/43 (53) 71/31 (44) Pulse Ox 94 93 94 94 O2 Delivery Nasal Cannula Nasal Cannula Nasal Cannula Nasal Cannula O2 Flow Rate 2.00 2.00 2.00 1.00 08/02/17 08/02/17 08/02/17 08/02/17 01:30 02:00 02:30 03:00 Pulse 76 73 73 75 Resp 16 13 16 15 B/P (MAP) 81/47 (58) 72/42 (52) 74/43 (53) 85/35 (52) Pulse Ox 96 95 95 97 O2 Delivery Nasal Cannula Nasal Cannula Nasal Cannula Nasal Cannula O2 Flow Rate 2.00 2.00 2.00 2.00 08/02/17 08/02/17 08/02/17 08/02/17 03:30 04:00 04:30 05:00 Pulse 72 79 77 76 Resp 16 17 14 16 B/P (MAP) 77/43 (54) 99/53 (68) 94/43 (60) 77/43 (54) Pulse Ox 97 97 97 98 O2 Delivery Nasal Cannula Nasal Cannula Nasal Cannula Nasal Cannula O2 Flow Rate 2.00 2.00 2.00 2.00 08/02/17 08/02/17 08/02/17 08/02/17 05:30 06:00 06:30 06:47 Pulse 78 79 80 Resp 14 21 32 B/P (MAP) 109/40 (63) 97/55 (69) 92/50 (64) Pulse Ox 98 99 99 98 O2 Delivery Nasal Cannula Nasal Cannula Nasal Cannula Nasal Cannula O2 Flow Rate 2.00 2.00 2.00 1.00 08/02/17 08/02/17 07:00 08:05 Temp 97.8 Pulse 77 84 Resp 22 B/P (MAP) 93/52 (66) Pulse Ox 98 O2 Delivery Nasal Cannula O2 Flow Rate 1.00 08/02/17 00:00 Intake Total 350 ml Output Total 75 ml Balance 275 ml Capillary Refill : Less Than 3 Seconds Constitutional: AAO x 3, well-developed, well-nourished HEENT: PERRL, hearing is well preserved; No xanthelasmas are seen Neck: No carotid bruit; carotid pulses are 2 + bilaterally, with good upstrokes Respiratory: No accessory muscle use; other (Fair air entry, prolonged exp, air entry diminished at the bases) Cardiovascular: regular rate-rhythm, S1 and S2, systolic murmur (soft KARLA at card base) Gastrointestinal: No tender; soft; No guarding, No rebound; audible bowel sounds Extremities: No clubbing, No cyanosis; significant edema (2+ edema of the legs , pitting) Neurologic/Psychiatric: oriented x 3, grossly intact Skin: No rash on exposed areas, No ulcerations on exposed areas Data Review Labs Laboratory Tests 08/01/17 12:31: Glucometer 180H 08/01/17 17:43: Glucometer 89 08/01/17 20:36: Glucometer 161H 08/02/17 06:06: Glucometer 125H 08/02/17 06:15: White Blood Count 10.4, Red Blood Count 3.26L, Hemoglobin 9.6L, Hematocrit 31L, Mean Corpuscular Volume 95, Mean Corpuscular Hemoglobin 29, Mean Corpuscular Hemoglobin Concent 31L, Red Cell Distribution Width 15.1H, Platelet Count 185, Mean Platelet Volume 11.4H, Neutrophils (%) (Auto) 65, Lymphocytes (%) (Auto) 24 , Monocytes (%) (Auto) 9, Eosinophils (%) (Auto) 2, Basophils (%) (Auto) 0, Neutrophils # (Auto) 6.7, Lymphocytes # (Auto) 2.5, Monocytes # (Auto) 1.0, Eosinophils # (Auto) 0.2, Basophils # (Auto) 0.0, Sodium Level 138, Potassium Level 5.6H, Chloride Level 106, Carbon Dioxide Level 22, Anion Gap 10, Blood Urea Nitrogen 59H, Creatinine 2.25H, Estimat Glomerular Filtration Rate 21, BUN/ Creatinine Ratio 26, Glucose Level 109H, Calcium Level 8.8, Total Bilirubin 0.3 , Aspartate Amino Transf (AST/SGOT) 37H, Alanine Aminotransferase (ALT/SGPT) 69H , Alkaline Phosphatase 103, Total Protein 6.2L, Albumin 3.2 Microbiology 07/31/17 Urine Culture - Preliminary, Resulted Sent To [facility] Laboratory Tests 07/31/17 17:01 08/01/17 03:26 08/02/17 06:15 A/P-Cardiology Assessment/Admission Diagnosis Ac systolic heart failure CAD. Ac UT associated with cardiogenic shock in Apr 2017. Underwent JUVENTINO of ostial and prox LAD and ostial and prox OM1 by Dr Bennett at [facility] in Apr 2017. LVEF on cath prior to PCI was approx 30%. (Hosp in Apr 2017 complicated by hypotension and ac renal failure) Acute renal failure Obesity with obesity-hypoventilation DM II Hyperlipidemia Suspected pneumonia Clinical Quality Measures AMI/AHF: ASA po Prior to arrival: No DVT/VTE Risk/Contraindication: Risk Factor Score Per Nursin RFS Level Per Nursing on Admit: 4+=Very High Physician Assessment Physician Assessment * Complex management due to multiple comorbidities (see above) * iv fluids + diuretics * Echo to eval EF * Not suitable for MIKE-inhib/ARB (renal failure with hyperkalemia) * Not suitable for beta-anabella (low bp) * Continue dual antiplatelet therapy * Treat hyperkalemia * Monitor labs DARSHANA BARKSDALE MD [facility] Aug 02, 2017 09:33
[2017-08-02] MEDS ORDERED: SOD POLYSTERENE 15 GM/60 ML (KAYEXALATE) UNIT DOSE PO NR (09:45)
[2017-08-02] MEDS: NS IV 1000 ML 1,000 ML IV SCH ×2 (11:02→20:30)
[2017-08-02] MEDS ORDERED: ATOR40TA70 PO (11:11)
--- NOTE | 2017-08-02 11:13 | Physical Therapy Evaluation ---
PT Evaluation-General Medical Diagnosis Admission Date Jul 31, 2017 at 18:45 Medical Diagnosis: pneumonia/CP/CHF/respiratory distress Onset Date: Jul 31, 2017 Therapy Diagnosis Therapy Diagnosis: generalized weakness/debility Height/Weight Height (Feet): 5 Height (Inches): 8.00 Weight (Pounds): 209 Weight (Ounces): 6.0 Precautions Precautions/Isolations: Fall Prevention, Standard Precautions Weight Bear Status Right Lower Extremity: Right Weight Bearing/Tolerated Left Lower Extremity: Left Weight Bearing/Tolerated Referral Physician: Negro Reason for Referral: Evaluation/Treatment Medical History Pertinent Medical History: DM, HTN, MO, Renal Insufficiency Current History EMS from [place] with CP and SOB x 2 days Reviewed History: Yes Social History Home: Snf Prior/Core FIM Prior Level of Function Functional [place] Measure 0=Not Assessed/NA 4=Minimal Assistance 1=Total Assistance 5=Supervision or Setup 2=Maximal Assistance 6=Modified [place] 3=Moderate Assistance 7=Complete [place] Bed Mobility: 4 Transfers (B,C,W/C) (FIM): 4 Gait: 1 Wheelchair Mobility: 3 Patient reports she was beginning to ambulate with FWW with therapy at [place] and was in w/c the majority of time PT Evaluation-Current Subjective Patient report she is tired. Agrees to PT. Pain Numeric Pain Scale: 0-No Pain Location: No Pain Reported Objective Patient Orientation: Normal For Age Problem Solving: Fair Attachments: Oxygen, [place] Catheter ROM/Strength ROM Lower Extremities bilateral LE WNL Strength Lower Extremities 3-/5 grossly bilaterally (patient unable to follow direction due to lethargy) Integumentary/Posture Integumentary refer to nursing notes Bladder Incontinence: Lemons Cath Posture WFL Neuromuscular (Tone, Coordination, Reflexes) diminished coordination due to weakness/lethargy Sensory Vision: Functional Hearing: Functional Sensation Right Lower Extremit: Impaired Sensation Left Lower Extremity: Impaired Transfers Functional [place] Measure 0=Not Assessed/NA 4=Minimal Assistance 1=Total Assistance 5=Supervision or Setup 2=Maximal Assistance 6=Modified [place] 3=Moderate Assistance 7=Complete [place] Transfers (B, C, W/C) (FIM): 2 Scootin Supine to/from Sit: 2 Sit to/from Stand: 2 Patient assist with all mobility due to weakness/lethargy Gait Mode of Locomotion: Both Anticipated Mode of Locomotion: Both Balance Sitting Static: Fair Sitting Dynamic: Fair Standing Static: Fair Standing Dynamic: Poor Assessment/Needs 77 y.o. female, will benefit from skilled PT to address functional strength and mobility to improve current LOF and to safely return to NH to continue with therapies. Rehab Potential: Fair PT Vice President Goals [facility] Goals PT [facility] Goals Time Frame: Aug 13, 2017 Transfers (B,C,W/C) (FIM): 4 Gait (FIM): 1 Gait distance (FIM): 1=up to 49 ft Distance: 45' Gait Level of Assist: 4 Gait Assistive Device: FWW PT Plan Problem List Problem List: Activity Tolerance, Functional Strength, Safety, Balance, Gait, Transfer, Bed Mobility Treatment/Plan Treatment Plan: Continue Plan of Care Treatment Plan: Bed Mobility, Education, Functional Activity [place], Functional Strength, Gait, Safety, Therapeutic Exercise, Transfers Treatment Duration: Aug 13, 2017 Frequency: 6 times per week Estimated Hrs Per Day: .25 hour per day Patient and/or Family Agrees t: Yes Discharge Recommendations Therapy D/C Recommendations: Snf Placement, [facility] (TCU/[facility]) Time/GCodes Time In: 1020 Time Out: 1040 Total Billed Treatment Time: 20 Total Billed Treatment 1 visit EVModC 20 min G Codes Necessary: No ROBYN MITCHELL PT Aug 02, 2017 11:13
[2017-08-02] MEDS: ENOXAPARIN 30 MG/0.3 ML (LOVENOX) SYR SC SCH (13:07)
[2017-08-02] MEDS: ATORVASTATIN 40 MG (LIPITOR) TABLET PO SCH (20:29)
[2017-08-02] MEDS: LORazepam 0.5 MG (ATIVAN) TABLET PO PRN (20:29)
[2017-08-02] MEDS ORDERED: AZITHROMYCIN 250 MG TAB (ZITHROMAX) PO SCH (21:00)
--- NOTE | 2017-08-02 22:03 | Progress Note (SOAP) ---
Subjective Subjective/Events-last exam Patient states that she is feeling better this AM. Denies any current chest pain. + shortness of breath that comes and goes. Review of Systems Date Seen by Provider: Aug 02, 2017 Time Seen by Provider: 09:40 Pulmonary: Dyspnea, Cough Cardiovascular: No: Chest Pain, Palpitations, Orthopnea Gastrointestinal: No: Nausea, Vomiting, Abdominal Pain, Diarrhea, Constipation Neurological: Weakness Objective Exam Last Set of Vital Signs Vital Signs Date Time Temp Pulse Resp B/P (MAP) Pulse Ox O2 Delivery O2 Flow Rate FiO2 08/02/17 19:35 97.8 85 18 98/54 (69) 94 Nasal Cannula 1.00 07/31/17 21:10 40 Capillary Refill : Less Than 3 Seconds I&O Intake and Output 08/02/17 00:00 Intake Total 920 ml Output Total 650 ml Balance 270 ml Intake Oral 870 ml IV Total 50 ml Output Urine Total 650 ml General: Alert, Oriented X3, Cooperative, No Acute Distress HEENT: Mucous Memb Moist/[place] Lungs: Clear to Auscultation, Normal Air Movement Heart: Regular Rate, No Murmurs Abdomen: Normal Bowel Sounds, Soft, No Tenderness Extremities: Other (3+ pitting edema) Neuro: Normal Speech, Cranial Nerves 3-12 NL Psych/Mental Status: Mental Status NL Results/Procedures Lab Laboratory Tests 08/02/17 06:06: Glucometer 125H 08/02/17 06:15: White Blood Count 10.4, Red Blood Count 3.26L, Hemoglobin 9.6L, Hematocrit 31L, Mean Corpuscular Volume 95, Mean Corpuscular Hemoglobin 29, Mean Corpuscular Hemoglobin Concent 31L, Red Cell Distribution Width 15.1H, Platelet Count 185, Mean Platelet Volume 11.4H, Neutrophils (%) (Auto) 65, Lymphocytes (%) (Auto) 24 , Monocytes (%) (Auto) 9, Eosinophils (%) (Auto) 2, Basophils (%) (Auto) 0, Neutrophils # (Auto) 6.7, Lymphocytes # (Auto) 2.5, Monocytes # (Auto) 1.0, Eosinophils # (Auto) 0.2, Basophils # (Auto) 0.0, Sodium Level 138, Potassium Level 5.6H, Chloride Level 106, Carbon Dioxide Level 22, Anion Gap 10, Blood Urea Nitrogen 59H, Creatinine 2.25H, Estimat Glomerular Filtration Rate 21, BUN/ Creatinine Ratio 26, Glucose Level 109H, Calcium Level 8.8, Total Bilirubin 0.3 , Aspartate Amino Transf (AST/SGOT) 37H, Alanine Aminotransferase (ALT/SGPT) 69H , Alkaline Phosphatase 103, Total Protein 6.2L, Albumin 3.2 08/02/17 11:07: Glucometer 159H 08/02/17 15:52: Glucometer 182H 08/02/17 21:21: Glucometer 281H Microbiology 07/31/17 Urine Culture - Preliminary, Resulted Klebsiella pneumoniae Sent To [facility] Radiology Date of Exam: 07/31/17 CHEST 1 VIEW, AP/PA ONLY INDICATION: Chest pain. Shortness of breath. COMPARISON: 04/22/2017. FINDINGS: There has been increase in cardiac size. There has been development of pulmonary edema with bilateral perihilar infiltrates as well as bilateral lower lobe alveolar infiltrates. There are small bilateral pleural effusions. IMPRESSION: 1. Findings are consistent with development of congestive failure since previous exam. Cannot exclude superimposed pneumonia in the lower lobes bilaterally. Date of Exam: 07/31/17 CT ANGIO CHEST W PROCEDURE: CT angiography of the chest with contrast. TECHNIQUE: Multiple contiguous axial images were obtained through the chest after uneventful bolus administration of intravenous contrast. Reconstructed CTA MIP acquisitions were also performed. INDICATION: Chest pain with shortness of breath. History of previous DVT and PE. CT angiography was performed due to acute shortness of breath and high risk and in spite of mildly decreased GFR function. This was discussed with the physician. FINDINGS: There are large bilateral pleural effusions. There is bilateral lower lobe atelectasis. Findings are consistent with diffuse pulmonary edema with diffuse interstitial infiltrate. There is good opacification of aorta and pulmonary arteries. There is no evidence of aortic aneurysm or dissection. Pulmonary arteries are well opacified. There are no filling defects to indicate pulmonary emboli. There is cardiomegaly with dilated left ventricle. No mediastinal or hilar adenopathy of pathologic size. IMPRESSION: 1. Findings are consistent with congestive failure with large bilateral pleural effusions with bibasilar atelectasis and diffuse interstitial infiltrates as well as cardiomegaly. 2. No findings to suggest pulmonary emboli. Assessment/Plan Assessment/Plan (1) Acute respiratory distress Status: Resolved Assessment & Plan: - Patient required Bipap at admission, titrated down to 2L NC - Will transfer out of ICU today - Significant improvement with diuresis 08/02: Resolved (2) Acute on chronic systolic CHF (congestive heart failure) Status: Acute Assessment & Plan: - Restart lasix 20 mg BID, Will continue to monitor Cr closely - D/c anais when transferred out of ICU - Monitor weight - Consult Cardiology 08/02: Dr Rodriguez saw patient will do IVFs with lasix per his recommendations, Will continue to monitor respiratory status, Echo pending (3) 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 Status: Chronic Assessment & Plan: - A1c pending - Accuchecks AC/HS (4) HTN (hypertension) Status: Chronic Assessment & Plan: - Normotensive/Hypotensive today, will continue to monitor with diuresis 08/02: IVFs today 100cc/hr Qualifiers: Qualified Codes: I10 - Essential (primary) hypertension (5) Normocytic anemia Status: Chronic Assessment & Plan: - Will get iron studies, likely 2/2 chronic disease (6) CKD (chronic kidney disease) Status: Chronic Qualifiers: Qualified Codes: N18.9 - Chronic kidney disease, unspecified (7) CAD (coronary artery disease) Status: Chronic Assessment & Plan: - Restarted Plavix, ASA and Lipitor Qualifiers: Qualified Codes: I25.118 - Atherosclerotic heart disease of [place] coronary artery with other forms of angina pectoris (8) Physical debility Status: Acute Assessment & Plan: - PT ordered, patient uses walker at baseline (9) DVT prophylaxis Status: Acute Assessment & Plan: - Lovenox Clinical Quality Measures AMI/AHF: ASA po Prior to arrival: No DVT/VTE Risk/Contraindication: Risk Factor Score Per Nursin RFS Level Per Nursing on Admit: 4+=Very High NARA SEGOVIA MD Aug 02, 2017 22:02
[2017-08-03] VITALS (14 sets, daily range): BP systolic 91–114; BP diastolic 40–78
[2017-08-03] MEDS: morphine INJ 10 MG/ML 1ML (SYR OR VIAL) IVP PRN ×2 (00:43→09:39)
[2017-08-03] MEDS ORDERED: NS IV 1000 ML 500 ML IV ONE (01:15)
[2017-08-03] MEDS: RT-ALBUTEROL/IPRATROPIUM 3 ML (DUONEB) VIAL INH SCH ×2 (02:39→07:35)
[2017-08-03] MEDS ORDERED: CEFEPIME INJECTION 1,000 MG in NS (IVPB) 50 ML IV SCH (05:00)
[2017-08-03] MEDS ORDERED: NS (IVPB) 50 ML ONE (05:40)
[2017-08-03] MEDS ORDERED: CEFEPIME 1 GM (MAXIPIME) VIAL ONE (05:40)
[2017-08-03] MEDS: inSUlin ASPART (NovoLOG) 1 UNIT/0.01 ML (CHARGE PER UNIT) SC SCH ×4 (06:36→14:17)
[2017-08-03] MEDS: NS IV 1000 ML 1,000 ML IV SCH ×2 (06:37→08:01)
[2017-08-03 07:57] LABS: BASOPHILS % (AUTO) 0 % (0-10); EOSINOPHILS # (AUTO) 0.1 10^3/uL (0.0-0.3); EOSINOPHILS % (AUTO) 1 % (0-10); HEMATOCRIT 30 % (35-52); HEMOGLOBIN 8.9 G/DL (11.5-16.0); LYMPHOCYTES # (AUTO) 1.6 X 10^3 (1.0-4.0); LYMPHOCYTES % (AUTO) 15 % (12-44); MEAN CORPUSCULAR HEMOGLOBIN 29 PG (25-34); MEAN CORPUSCULAR HGB CONC 30 G/DL (32-36); MEAN CORPUSCULAR VOLUME 96 FL (80-99); MEAN PLATELET VOLUME 11.5 FL (7.4-10.4); MONOCYTES # (AUTO) 1.3 X 10^3 (0.0-1.0); MONOCYTES % (AUTO) 11 % (0-12); NEUTROPHILS # (AUTO) 8.1 X 10^3 (1.8-7.8); NEUTROPHILS % (AUTO) 73 % (42-75); PLATELET COUNT 206 10^3/uL (130-400); RED BLOOD COUNT 3.12 10^6/uL (4.35-5.85); RED CELL DISTRIBUTION WIDTH 15.2 % (10.0-14.5); WHITE BLOOD COUNT 11.1 10^3/uL (4.3-11.0)
[2017-08-03] MEDS: CLOPIDOGREL 75 MG (PLAVIX) TABLET PO SCH (08:02)
[2017-08-03] MEDS: ASPIRIN E.C. 81 MG (ECOTRIN) TAB PO SCH (08:02)
[2017-08-03 08:23] LABS: ALBUMIN 3.1 GM/DL (3.2-4.5); BILIRUBIN,TOTAL 0.4 MG/DL (0.1-1.0); CALCIUM 8.4 MG/DL (8.5-10.1); CREATININE SERUM 3.38 MG/DL (0.60-1.30); POTASSIUM 5.9 MMOL/L (3.6-5.0); TOTAL PROTEIN 6.1 GM/DL (6.4-8.2)
[2017-08-03] MEDS ORDERED: SOD POLYSTERENE 15 GM/60 ML (KAYEXALATE) UNIT DOSE PO SCH (09:30)
[2017-08-03] MEDS: LORazepam 0.5 MG (ATIVAN) TABLET PO PRN (09:41)
[2017-08-03] MEDS: ONDANSETRON 4 MG/2 ML (SDV) Z0FRAN IV PRN (09:47)
--- NOTE | 2017-08-03 10:12 | Progress Note-Cardiology ---
Cardiology SOAP Progress Note Subjective: States she does not feel well this morning. C/O increasing SOB, nausea and mid- sternal chest pressure. She reports it started this morning. Objective: I&O/Vital Signs 08/03/17 08/03/17 08/03/17 08/03/17 05:00 07:35 07:35 08:00 Temp 98.9 98.7 Pulse 83 79 79 Resp 19 16 B/P (MAP) 110/54 (72) 107/52 (70) Pulse Ox 97 91 91 93 O2 Delivery Nasal Cannula Nasal Cannula Nasal Cannula O2 Flow Rate 3.00 1.00 3.00 08/03/17 08/03/17 08/03/17 08/03/17 09:00 10:30 10:30 10:35 Temp 97.3 Pulse 90 Resp 13 B/P (MAP) 103/72 (82) Pulse Ox 96 98 O2 Delivery Nasal Cannula Nasal Cannula Nasal Cannula Nasal Cannula O2 Flow Rate 3.00 3.00 3.00 3.00 08/03/17 08/03/17 08/03/17 08/03/17 10:45 11:00 11:15 11:30 Pulse 89 82 78 84 Resp 12 10 12 10 B/P (MAP) 93/58 (70) 98/63 (75) 93/59 (70) 114/77 (89) Pulse Ox 98 96 98 98 O2 Delivery Nasal Cannula Nasal Cannula Nasal Cannula Nasal Cannula O2 Flow Rate 3.00 3.00 3.00 3.00 08/03/17 08/03/17 11:55 12:00 Temp 98.2 B/P (MAP) Pulse Ox 98 O2 Delivery Nasal Cannula Nasal Cannula O2 Flow Rate 3.00 3.00 08/03/17 00:00 Intake Total 1790 ml Output Total 90 ml Balance 1700 ml Weight (Pounds): 220 Weight (Ounces): 0.0 Weight (Calculated Kilograms): 99.907873 Constitutional: AAO x 3, well-developed, well-nourished Respiratory: No accessory muscle use; other (Fair air entry, prolonged exp, air entry diminished at the bases) Cardiovascular: regular rate-rhythm, S1 and S2, systolic murmur (soft KARLA at card base) Gastrointestional: No tender; soft; No guarding, No rebound; audible bowel sounds Extremities: No clubbing, No cyanosis; significant edema (2+ edema of the legs , pitting) Neurologic/Psychiatric: oriented x 3, grossly intact Skin: No rash on exposed areas, No ulcerations on exposed areas Results/Procedures: Labs Laboratory Tests 08/02/17 15:52: Glucometer 182H 08/02/17 21:21: Glucometer 281H 08/03/17 05:24: Glucometer 183H 08/03/17 07:13: White Blood Count 11.1H, Red Blood Count 3.12L, Hemoglobin 8.9L, Hematocrit 30L , Mean Corpuscular Volume 96, Mean Corpuscular Hemoglobin 29, Mean Corpuscular Hemoglobin Concent 30L, Red Cell Distribution Width 15.2H, Platelet Count 206, Mean Platelet Volume 11.5H, Neutrophils (%) (Auto) 73, Lymphocytes (%) (Auto) 15 , Monocytes (%) (Auto) 11, Eosinophils (%) (Auto) 1, Basophils (%) (Auto) 0, Neutrophils # (Auto) 8.1H, Lymphocytes # (Auto) 1.6, Monocytes # (Auto) 1.3H, Eosinophils # (Auto) 0.1, Basophils # (Auto) 0.0, Sodium Level 136, Potassium Level 5.9H, Chloride Level 106, Carbon Dioxide Level 19L, Anion Gap 11, Blood Urea Nitrogen 74H, Creatinine 3.38#H, Estimat Glomerular Filtration Rate 13, BUN /Creatinine Ratio 22, Glucose Level 169H, Calcium Level 8.4L, Total Bilirubin 0.4, Aspartate Amino Transf (AST/SGOT) 34, Alanine Aminotransferase (ALT/SGPT) 59H, Alkaline Phosphatase 116, Total Protein 6.1L, Albumin 3.1L 08/03/17 12:00: Glucometer 248H 08/03/17 14:35: Sodium Level 134L, Potassium Level 6.2H, Chloride Level 108H, Carbon Dioxide Level 13L, Anion Gap 13, Blood Urea Nitrogen 73H, Creatinine 3.58H, Estimat Glomerular Filtration Rate 12, BUN/Creatinine Ratio 20, Glucose Level 218H, Calcium Level 8.3L Microbiology 07/31/17 Urine Culture - Final, Complete Klebsiella pneumoniae A/P: Assessment: Chest pain of new onset Dyspnea Ac systolic heart failure Echocardiogram of August 04 2017 showed LVEF 30-35%. Grade 2 diastolic dysfunction. Mild to mod MR and TR. PASP 45-50mmHg CAD. Ac TX associated with cardiogenic shock in Apr 2017. Underwent JUVENTINO of ostial and prox LAD and ostial and prox OM1 by Dr Bennett at [facility] [place] in Apr 2017. LVEF on cath prior to PCI was approx 30%. (Hosp in Apr 2017 complicated by hypotension and ac renal failure) Acute renal failure - worsening Cr UTI - management per medical services Obesity with obesity-hypoventilation DM II Hyperlipidemia Suspected pneumonia Hyperkalemia Plan: Complex management issue Worsening Cr and hyperkalemia this morning - dose of Kayexalate given already. Give one amp D50 along with 12 units of insulin IV and 100 mg IV Lasix stat Consider transfer to tertiary care facility I have spoken with Dr. Tom Addendum: [phone]: [phone] lab results reviewed showing worsening Cr and hyperkalemia D/W Dr. Rodriguez Give additional D50 1/2 amp with 12 units of Regular insulin IV Pt is to transfer to [facility] per Dr. Tom Clinical Quality Measures AMI/AHF: ASA po Prior to arrival: CROW Cannon Aug 03, 2017 10:12
[2017-08-03] MEDS ORDERED: inSUlin (REGULAR) HUMAN 1 UNIT/0.01 ML (CHARGE PER UNIT) IV NR (10:13)
[2017-08-03] MEDS ORDERED: DEXTROSE 50% 50 ML (IMS) SYR IV NR (10:27)
[2017-08-03] MEDS ORDERED: FUROSEMIDE 40 MG/4 ML INJ (LASIX) IVP NR (10:28)
--- NOTE | 2017-08-03 10:52 | Physical Therapy Progress Note ---
Therapy Progress Note Patient transferred back to ICU. PT to hold on this date and will reassess in ROBYN Mcfarlane PT Aug 03, 2017 10:52
[2017-08-03] MEDS: ACETAMINOPHEN 500 MG TAB (TYLENOL) PO PRN (13:09)
[2017-08-03] MEDS: ENOXAPARIN 30 MG/0.3 ML (LOVENOX) SYR SC SCH (13:15)
[2017-08-03] MEDS ORDERED: NS IV 500 ML 500 ML IV ONE (14:30)
[2017-08-03 14:59] LABS: CALCIUM 8.3 MG/DL (8.5-10.1); CREATININE SERUM 3.58 MG/DL (0.60-1.30); POTASSIUM 6.2 MMOL/L (3.6-5.0)
[2017-08-03] MEDS ORDERED: DEXTROSE 50% 50 ML (IMS) SYR IV STA (15:16)
[2017-08-03] MEDS ORDERED: inSUlin (REGULAR) HUMAN 1 UNIT/0.01 ML (CHARGE PER UNIT) IV STA (15:16)
[2017-08-03] MEDS ORDERED: RT-ALBUTEROL/IPRATROPIUM 3 ML (DUONEB) VIAL INH SCH (21:00)
--- NOTE | 2017-08-03 22:17 | Discharge Summary ---
Diagnosis/Chief Complaint Date of Admission Jul 31, 2017 at 18:45 Date of Discharge Aug 03, 2017 at 16:05 Admission Diagnosis Admission Diagnosis Acute on Chronic Respiratory failure with hypoxia Acute on Chronic Systolic heart failure Acute on Chronic kidney failure CAD IDDM with renal disease Hyperkalemia Normocytic anemia Elevated LFTs Debility Discharge Diagnosis See Above Chief Complaint/HPI Chief Complaint/HPI 77 yo F with recent hospitalization in Apr for acute PA s/p multiple stents. Patient has then been at [facility] since. Prior to this hospitalization she states that she started to feel bad about 4-5 days ago. Yesterday prior to admission the staff at [facility] noticed that she was short of breath and did an oxygen saturation on her and she was in the 70s at rest. They placed the patient on oxygen and sent her to the ER. When she arrived in the ER she required Bipap to maintain oxygen saturations and was given a dose of lasix. Patient states that this AM she feels much better and looks comfortable on 2L NC. She denies any fever or chills. + shortness of breath. States that she has occasional chest pain in the center of her chest. She denies any chest pain since arriving. + Non productive cough. Discharge Summary-Simple/Stand Consultations Dr Rodriguez, Cardiology Discharge Physical Examination Allergies: Coded Allergies: NKANo Known Allergies (Unverified Allergy, Unknown, 08/29/05) Vitals & I&Os Vital Sign - Last 12Hours Date Time Temp Pulse Resp B/P (MAP) Pulse Ox O2 Delivery O2 Flow Rate FiO2 08/03/17 16:05 98 Nasal Cannula 3.00 08/03/17 16:00 76 26 111/78 (89) 08/03/17 12:00 98.2 07/31/17 21:10 40 Intake and Output 08/03/17 00:00 Intake Total 1790 ml Output Total 90 ml Balance 1700 ml General Appearance: Alert, Oriented X3, Cooperative, Moderate Distress Respiratory: Other (Increase work of breathing, basilar crackles) Cardiovascular: Regular Rate Abdominal: Soft, No Tenderness, No Hepatosplenomegaly, No Masses Extremities: Other (3+ pitting edema bilaterally) Neuro: Normal Speech, Cranial Nerves 3-12 NL Hospital Course See final discharge diagnosis. Radiology Reviewed Date of Exam: 07/31/17 CHEST 1 VIEW, AP/PA ONLY INDICATION: Chest pain. Shortness of breath. COMPARISON: 04/22/2017. FINDINGS: There has been increase in cardiac size. There has been development of pulmonary edema with bilateral perihilar infiltrates as well as bilateral lower lobe alveolar infiltrates. There are small bilateral pleural effusions. IMPRESSION: 1. Findings are consistent with development of congestive failure since previous exam. Cannot exclude superimposed pneumonia in the lower lobes bilaterally. Date of Exam: 07/31/17 CT ANGIO CHEST W PROCEDURE: CT angiography of the chest with contrast. TECHNIQUE: Multiple contiguous axial images were obtained through the chest after uneventful bolus administration of intravenous contrast. Reconstructed CTA MIP acquisitions were also performed. INDICATION: Chest pain with shortness of breath. History of previous DVT and PE. CT angiography was performed due to acute shortness of breath and high risk and in spite of mildly decreased GFR function. This was discussed with the physician. FINDINGS: There are large bilateral pleural effusions. There is bilateral lower lobe atelectasis. Findings are consistent with diffuse pulmonary edema with diffuse interstitial infiltrate. There is good opacification of aorta and pulmonary arteries. There is no evidence of aortic aneurysm or dissection. Pulmonary arteries are well opacified. There are no filling defects to indicate pulmonary emboli. There is cardiomegaly with dilated left ventricle. No mediastinal or hilar adenopathy of pathologic size. IMPRESSION: 1. Findings are consistent with congestive failure with large bilateral pleural effusions with bibasilar atelectasis and diffuse interstitial infiltrates as well as cardiomegaly. 2. No findings to suggest pulmonary emboli. Discussion & Recommendations 77 yo F admitted for acute respiratory failure secondary to acute systolic heart failure now have multi system organ failure Acute on Chronic Respiratory failure with hypoxia: Patient was sent to ICU and placed on bipap. Patient was able to come off bipap with diuresis and respiratory status much improved and patient was transferred to Med surg floor on day 2. Due to diuresis patient started having elevation on Cr with asympatomatic hyperkalemia that required fluid administration and treat of hyperkalemia with no improvement. Patient's daughters and sister to ICU and made decision to transfer patient and they said that they are not interested in palliative care at this time. Patient remains DNR status. Acute on Chronic Systolic heart failure: Improved at time of discharge but patient requiring fluids for renal failure and thus required increased oxygen support and return to ICU status. Acute on Chronic kidney failure: Worsening kidney function throughout admission that required transfer to tertiary care center with dialysis availability given patient's hyperkalemia and worsening even after treatment of hyperkalemia. CAD: Chronic. IDDM with renal disease: Patient was placed on sliding scale insulin due to severe disease and poor appetite Hyperkalemia: See Above. Normocytic anemia: Stable, no sign of acute bleeding during admission. Elevated LFTs: Trended up during admission. Will get further workup at [facility] Discharge Condition at discharge Poor Prognosis Instructions to patient/family Please see electronic discharge instructions given to patient. Discharge Medications Reviewed and agree with Discharge Medication list on patient's Discharge Instruction sheet Clinical Quality Measures AMI/AHF: ASA po Prior to arrival: No DVT/VTE Risk/Contraindication: Risk Factor Score Per Nursin RFS Level Per Nursing on Admit: 4+=Very High Copy Copies To 1: Julia SALMERON HOLLY R MD Aug 03, 2017 22:17
== END 2017-08-03 16:05 | disposition short-term general hospital (02) | DRG 291 ==
LOC: EDUNIT# 16:59 → ER 17:00 → ICU 18:45 → 4TH 08-02 11:45 → ICU 08-03 10:24
PROVIDERS: ADMIT Family Medicine; ATTEND Family Medicine
DX: I13.0 Hypertensive heart and chronic kidney disease with heart failure and stage 1 through stage 4 chronic kidney disease, or unspecified chronic kidney disease (principal); I50.23 Acute on chronic systolic (congestive) heart failure; J96.21 Acute and chronic respiratory failure with hypoxia; J18.9 Pneumonia, unspecified organism; N17.9 Acute kidney failure, unspecified; E66.2 Morbid (severe) obesity with alveolar hypoventilation; N39.0 Urinary tract infection, site not specified; N18.9 Chronic kidney disease, unspecified; Z66 Do not resuscitate; E11.29 Type 2 diabetes mellitus with other diabetic kidney complication; I25.118 Atherosclerotic heart disease of native coronary artery with other forms of angina pectoris; I25.2 Old myocardial infarction; E87.5 Hyperkalemia; D64.9 Anemia, unspecified; E78.00 Pure hypercholesterolemia, unspecified; H35.30 Unspecified macular degeneration; F41.9 Anxiety disorder, unspecified; M19.91 Primary osteoarthritis, unspecified site; Z68.31 Body mass index [BMI] 31.0-31.9, adult; Z95.5 Presence of coronary angioplasty implant and graft; Z85.820 Personal history of malignant melanoma of skin; Z79.4 Long term (current) use of insulin
CPT/HCPCS: 36415; 71045; 71275; 80048; 80053; 80061; 81000; 82728; 82805; 82962; 83036; 83540; 83690; 83735; 83874; 83880; 84100; 84484; 85007; 85025; 85027; 85379; 85610; 85730; 87077; 87088; 87186; 93005; 93041; 93306; 94640; 94660; 94664; 94760; 96361; 96374; 96375